=== PATIENT | female | born 1960 ===

== ENCOUNTER 2017-01-09 16:08 | Inpatient (IN) | payer OTHER ==
[2017-01-09 16:49] VITALS: BMI 38.0
--- NOTE | 2017-01-09 18:14 | ED PDOC ---
Arrival/HPI - General Chief Complaint: Psychiatric Evaluation Time Seen by Provider: 01/09/17 18:11 Historian: Patient, Family - History of Present Illness Narrative History of Present Illness (Text): 01/09/17 18:11 A 56 year old female was brought into the emergency department by family for psych evaluation. Family reports patient has not slept in the past 3 days and is not acting like herself. She reports patient has had 2 "mental breakdowns" in the past, which feel similar to today. Patient has not been compliant with her medication. Patient is laughing uncontrollably but denies any physical pain or discomfort, suicidal ideation, homicidal ideation, or any other complaints. Time/Duration: Other (3 days) Symptom Course: Unchanged Quality: Other Context: Home Past Medical History - Provider Review Nursing Documentation Reviewed: Yes - Infectious Disease Hx of Infectious Diseases: None - Psychiatric Hx Psychophysiologic Disorder: Yes Hx Bipolar Disorder: Yes Hx Substance Use: No - Anesthesia Hx Anesthesia: No Family/Social History - Physician Review Nursing Documentation Reviewed: Yes Family/Social History: No Known Family HX Smoking Status: Current Some Days Smoker Hx Alcohol Use: No Hx Substance Use: No Allergies/Home Meds Allergies/Adverse Reactions: Allergies No Known Allergies Allergy (Verified 01/09/17 16:48) Home Medications: Home Meds Medication Instructions Recorded Confirmed Divalproex [Depakote DR] 0 mg PO DAILY 01/09/17 01/09/17 Risperidone [Risperdal] 0 mg PO DAILY 01/09/17 01/09/17 Physical Exam - Physical Exam Narrative Physical Exam (Text): - Review of Systems Constitutional: Normal. absent: Fatigue, Weight Change, Fevers Eyes: Normal ENT: denies sore throat, denies tristhmus Respiratory: Normal. absent: SOB, Cough, Sputum Cardiovascular: absent: Chest Pain, Palpitations, Syncope Gastrointestinal: Normal. absent: Abdominal Pain, Diarrhea, Nausea, Vomiting Genitourinary: Normal. absent: Dysuria, Frequency, Hematuria, vaginal bleeding Musculoskeletal: Normal. absent: Arthralgias, Back Pain, Neck Pain Skin: no rashes, no erythema Neurological: absent: Focal Weakness Endocrine: Normal Hemo/Lymphatic: Normal Psychiatric: No suicidal or homicidal ideations Physical exam Patient appears age appropriate in no distress, speaking full sentences without difficulty - Systems Exam Head: Present: Atraumatic, Normocephalic Pupils: Present: PERRL Extroacular Muscles: Present: EOMI Conjunctiva: Present: Normal Mouth: Present: Moist Mucous Membranes Neck: Present: Normal Range of Motion. No: MIDLINE TENDERNESS, Paraspinal Tenderness Respiratory/Chest: Present: Clear to Auscultation, Good Air Exchange. No: Respiratory Distress, Accessory Muscle Use, Tachypneic Cardiovascular: Present: Regular Rate and Rhythm, Normal S1, S2, Peripheal Pulses Present. No: Murmurs Abdomen: Present: Normal Bowel Sounds. No: Tenderness, Distention, Peritoneal Signs, Rebound, Guarding Back: Present: Normal Inspection. No: Midline Tenderness, Paraspinal Tenderness Upper Extremity: Present: Normal Inspection. No: Cyanosis, Edema Lower Extremity: Present: Normal Inspection. No: Edema Neurological: Present: GCS=15, Speech Normal, cranial nerves II through XII fully intact with no cerebellar abnormality, neurosensory fully intact. No focal neurological deficits. Skin: Present: Warm, Dry, Normal Color. No: Rashes Lymphatic: Present: OX3, NI, NC Psychiatric: Present: Alert, not anxious Vital Signs Reviewed: Yes Vital Signs Temp Pulse Resp BP Pulse Ox 01/09/17 20:49 88 18 138/58 L 97 01/09/17 16:51 99.0 F 98 H 19 165/80 H 100 Temperature: Afebrile Blood Pressure: Hypertensive Pulse: Tachycardic Respiratory Rate: Normal Medical Decision Making ED Course and Treatment: 01/09/17 18:11 Impression: A 56 year old female brought in for psych evaluation. Patient has not taken her medication in 3 days. Plan: -- Chest xray -- EKG -- Labs -- Urinalysis -- Reassess and disposition Progress Notes: Patient offered something for her nerves and she accepted oral medication. 01/09/17 21:05 seen by PES, accepted to Dr. Lundy's service for acute psychosis pt and family aware of and agree with plan 01/09/17 22:06 sodium and chloride low fluid bolus ordered pt will be admitted medically first until stabilized spoke with med resident signed out to Dr. Villasenor, accepted med/surg admission family aware of and agree with plan - Lab Interpretations Lab Results: 01/09/17 20:56 01/09/17 20:56 Lab Results 01/09/17 21:13: Urine Opiates Screen Negative, Urine Methadone Screen Negative, Ur Barbiturates Screen Negative, Ur Phencyclidine Scrn Negative, Ur Amphetamines Screen Negative, U Benzodiazepines Scrn Negative, U Oth Cocaine Metabols Positive H, U Cannabinoids Screen Negative 01/09/17 21:13: Urine Color Yellow, Urine Appearance Sl cloudy, Urine pH 6.0, Ur Specific [place] <= 1.005, Urine Protein Negative, Urine Glucose (UA) Negative, Urine Ketones Negative, Urine Blood Large H, Urine Nitrate Negative, Urine Bilirubin Negative, Urine Urobilinogen 1.0 H, Ur Leukocyte Esterase Moderate H, Urine RBC 5 - 10, Urine WBC 10 - 15, Ur Epithelial Cells 10 - 12, Urine Bacteria Few 01/09/17 20:56: Alcohol, Quantitative < 10 01/09/17 20:56: Salicylates < 1 L, Acetaminophen < 10.0 L 01/09/17 20:56: Sodium 125 L, Potassium 4.2, Chloride 90 L, Carbon Dioxide 26, Anion Gap 13, BUN 4 L, Creatinine 0.9, Est GFR ( Amer) > 60, Est GFR (Non -Af Amer) > 60, Random Glucose 95, Calcium 9.7, Total Bilirubin 0.8, AST 41 H, ALT 21, Alkaline Phosphatase 140 H, Total Protein 8.4 H, Albumin 4.1, Globulin 4.3, Albumin/Globulin Ratio 1.0 L 01/09/17 20:56: WBC 10.8, RBC 4.27, Hgb 14.1, Hct 39.0, MCV 91.3, MCH 33.0, MCHC 36.2, RDW 12.6, Plt Count 249, MPV 11.1 H, Gran % 55.7, Lymph % (Auto) 33.2 , [place] % (Auto) 8.9 H, Eos % (Auto) 1.8, Baso % (Auto) 0.4, Gran # 6.04, Lymph # 3.6 H, [place] # 1.0 H, Eos # 0.2, Baso # 0.04 I have reviewed the lab results: Yes - RAD Interpretation Radiology Orders: 01/09/17 18:13 CHEST PORTABLE [RAD] Stat - Medication Orders Current Medication Orders: Sodium Chloride (Sodium Chloride 0.9%) 1,000 mls @ 1,000 mls/hr IV .Q1H STA Stop: 01/09/17 22:55 Discontinued Medications Haloperidol Lactate (Haldol) 5 mg IM STAT STA Stop: 01/09/17 21:13 Last Admin: 01/09/17 21:45 Dose: 5 mg Lorazepam (Ativan) 2 mg IM ONCE ONE Stop: 01/09/17 21:13 Last Admin: 01/09/17 21:45 Dose: 2 mg Ziprasidone (Geodon Cap) 20 mg PO STAT STA PRN Reason: Protocol Stop: 01/09/17 18:44 Last Admin: 01/09/17 19:25 Dose: 20 mg - Scribe Statement The provider has reviewed the documentation as recorded by the Lena Manzano Provider Scribe Attestation: All medical record entries made by the Scribe were at my direction and personally dictated by me. I have reviewed the chart and agree that the record accurately reflects my personal performance of the history, physical exam, medical decision making, and the department course for this patient. I have also personally directed, reviewed, and agree with the discharge instructions and disposition. Disposition/Present on Arrival - Present on Arrival Any Indicators Present on Arrival: No History of DVT/PE: No History of Uncontrolled Diabetes: No Urinary Catheter: No History of Decub. Ulcer: No History Surgical Site Infection Following: None - Disposition Have Diagnosis and Disposition been Completed?: Yes Diagnosis: Hyponatremia Disposition: HOSPITALIZED Disposition Time: 22:06 Patient Plan: Admission Condition: FAIR Referrals: Debbie Nagel MD [Primary Care Provider] - Follow up with primary Forms: [employer] (Kyrgyz)
[2017-01-09 21:04] LABS: BASO # 0.04 K/mm3 (0.0-2.0); BASO % 0.4 % (0.0-3.0); EOS # 0.2 (0.0-0.7); EOS % 1.8 % (1.5-5.0); GRAN # 6.04 (1.4-6.5); GRAN % 55.7 % (50.0-68.0); LYMPH # 3.6 (1.2-3.4); LYMPH % 33.2 % (22.0-35.0); MEAN CELL VOLUME 91.3 fl (80.0-105.0); MEAN CORPUSCULAR HGB CONC 36.2 g/dl (31.0-37.0); MEAN PLATELET VOLUME 11.1 fl (7.0-11.0); MONO % 8.9 % (1.0-6.0); RED CELL DISTRIBUTION WIDTH 12.6 % (11.5-14.5); WHITE BLOOD COUNT 10.8 10^3/ul (4.5-11.0)
[2017-01-09 21:14] LABS: ALKALINE PHOSPHATASE 140 U/L (38-126); ALT/SGPT 21 U/L (7-56); AST/SGOT 41 U/L (14-36); BILIRUBIN,TOTAL 0.8 mg/dL (0.2-1.3); BLOOD UREA NITROGEN 4 mg/dL (7-21); CALCIUM 9.7 mg/dL (8.4-10.5); CARBON DIOXIDE 26 mmol/L (21-33); CHLORIDE 90 mmol/L (95-110); GFR AFRICAN-AMERICAN > 60; GLUCOSE,RANDOM 95 mg/dL (70-110); POTASSIUM 4.2 mmol/L (3.6-5.0); SODIUM 125 mmol/L (132-148); TOTAL PROTEIN 8.4 g/dL (5.8-8.3)
[2017-01-09 21:23] LABS: URINE BILIRUBIN NEGATIVE (NEGATIVE); URINE BLOOD LARGE (NEGATIVE); URINE GLUCOSE (UA) NEGATIVE (NEGATIVE); URINE KETONE NEGATIVE (NEGATIVE); URINE LEUKOCYTE ESTERASE MODERATE Leu/uL (NEGATIVE); URINE PROTEIN NEGATIVE mg/dL (<30 mg/dL)
[2017-01-09 21:24] LABS: URINE APPEARANCE SL CLOUDY (CLEAR); URINE COLOR YELLOW (YELLOW)
[2017-01-09 21:30] LABS: URINE BACTERIA FEW (NEG)
[2017-01-09] MEDS ORDERED: Sodium Chloride 0.9% 1,000 ML IV STA (21:56)
[2017-01-10] MEDS ORDERED: Sodium Chloride 0.9% 1,000 ML IV SCH (01:36)
--- NOTE | 2017-01-10 01:53 | CP.PCM.HP ---
<AMBER JUNG - Last Filed: 01/10/17 01:49> History of Present Illness - History of Present Illness History of Present Illness: Amber Jung, PGY1, H&P for Dr. Villasenor: CC: Insomnia 56F with PMH Bipolar d/o, Schizophrenia, HTN, brought in by family for insomniax past 3 days [employer]. When examined by me, pt already received Geodon, Ativan, Haldol in ED - pt sedated and drowsy. Info obtained from previous records/family not at bedside. As per family, pt has not slept for past 3 days , not acting herself, and is noncompliant with her meds, laughing uncontrollably. Denied any physical pain, discomfort, suicidal and homicidal ideations. In ED, VS wnl with elevated BP 165/80, Na 125, Cl 90, UA + blood and infection. Currently, pt drowsy and sleepy, denies any pain, nausea, vomiting, malaise, weakness. Rest ROS unobtainable due to drowsy state. PMH: Bipolar disorder (with 2 mental breakdowns in the past), HTN, Schizophrenia PSH: denies ALL: NKA SH: unemployed. rest unobtainable. Present on Admission - Present on Admission Any Indicators Present on Admission: No History of DVT/PE: No History of Uncontrolled Diabetes: No Urinary Catheter: No Decubitus Ulcer Present: No History Surgical Site Infection Following: None Review of Systems - Review of Systems Systems not reviewed;Unavailable: Acuity of Condition, Other (pt sedated on Geodon, ativan and haldol) Past Patient History - Infectious Disease Hx of Infectious Diseases: None - Past Social History Smoking Status: Current Some Days Smoker - CARDIAC Hx Cardiac Disorders: No Hx Hypertension: No - PULMONARY Hx Tuberculosis: No - NEUROLOGICAL HX Cerebrovascular Accident: No Hx Seizures: No - HEMATOLOGICAL/ONCOLOGICAL Hx Cancer: No Hx Human Immunodeficiency Virus (HIV): No - GENITOURINARY/GYNECOLOGICAL Hx Sexually Transmitted Disorders: No - PSYCHIATRIC Hx Psychophysiologic Disorder: Yes Hx Bipolar Disorder: Yes Hx Substance Use: No - SURGICAL HISTORY Hx Surgeries: No - ANESTHESIA Hx Anesthesia: No Meds Allergies/Adverse Reactions: Allergies Allergy/AdvReac Type Severity Reaction Status Date / Time No Known Allergies Allergy Verified 01/09/17 16:48 Physical Exam - Constitutional Appears: No Acute Distress, Unkempt, Older Than Stated Age Additional comments: drowsy - Head Exam Head Exam: ATRAUMATIC, NORMOCEPHALIC - Eye Exam Eye Exam: PERRL. absent: Conjunctival injection, Scleral icterus Pupil Exam: NORMAL ACCOMODATION, PERRL. absent: Irregular, Unequal - ENT Exam ENT Exam: Mucous Membranes Dry - Neck Exam Neck exam: Negative for: Lymphadenopathy, Thyromegaly - Respiratory Exam Respiratory Exam: Clear to Auscultation Bilateral, NORMAL BREATHING PATTERN. absent: Rales, Rhonchi, Wheezes - Cardiovascular Exam Cardiovascular Exam: RRR, +S1, +S2. absent: Systolic Murmur - GI/Abdominal Exam GI & Abdominal Exam: Distended, Normal Bowel Sounds, Soft. absent: Tenderness - Extremities Exam Extremities exam: Positive for: normal inspection, pedal pulses present. Negative for: calf tenderness, pedal edema - Neurological Exam Neurological exam: Alert, Oriented x3 - Psychiatric Exam Psychiatric exam: Flat Affect Additional comments: drowsy and sleepy - Skin Skin Exam: Dry, Warm Results - Vital Signs Recent Vital Signs: Last Vital Signs Temp 99.0 F 01/09/17 16:51 Pulse 88 01/09/17 20:49 Resp 18 01/09/17 20:49 BP 138/58 L 01/09/17 20:49 Pulse Ox 97 01/09/17 20:49 - Labs Result Diagrams: 01/09/17 20:56 01/09/17 20:56 Assessment & Plan - Assessment and Plan (Free Text) Assessment: 56F with PMH bipolar disorder, HTN, admitted for an episode of acute psychosis, found to be hyponatremic, hypochloremic, and possible UTI? Plan: Hyponatremia/Hypochloremia: - 2/2 polydipsia vs low intake vs hyperlipidemia - Na 125, glucose 95 - f/u Soms, Uosm, Belia, UCl, lipid panel, CMP in AM - received 1L NS in ED - Will start NS at 100/hr UTI: - unable to obtain appropriate hx since pt is sedated - UA shows yellow, slightly cloudy urine, large blood, neg nitrate, moderate leuk esterase, few bacteria, 10-12 epithelial cells, 10-15 wbcs, 5-10 rbcs - Will start Macrobid x 3 days Acute Psychosis, Hx of Bipolar disorder: - F/u Dr. Foster's recs. Unclear the dosage and the home psych meds. On home Risperidone and Depakote (unclear dosage). - Please obtain med rec from patient's pharmacy tomorrow AM. Hx of Schizophrenia: - Please contact pt's family and PMD in AM to obtain a proper psych history. - Pt noncompliant with meds as per family Hx of HTN: - unknown meds at home - Hydralazine prn DVT ppx: SCDs Diet: heart healthy diet Discussed with Dr Jacklyn Jung, PGY1 - Date & Time Date: 01/10/17 Time: 02:24 <Rhoda Villasenor - Last Filed: 01/10/17 09:13> Results - Vital Signs Recent Vital Signs: Last Vital Signs Temp 9813 F H 01/10/17 04:03 Pulse 20 L 01/10/17 04:03 Resp 20 01/10/17 04:03 BP 138/76 01/10/17 04:03 Pulse Ox 97 01/09/17 20:49 - Labs Result Diagrams: 01/09/17 20:56 01/09/17 20:56 Labs: Laboratory Results - last 24 hr 01/10/17 01/10/17 01/10/17 04:05 04:30 04:30 Serum Osmolality 258 L Urine Osmolality 130 Ur Random Sodium 21 Attending/Attestation - Attestation I have personally seen and examined this patient.: Yes I have fully participated in the care of the patient.: Yes I have reviewed all pertinent clinical information: Yes Notes (Text): 01/10/17 08:53 Patient was seen when she was in "ISO" room in the ER. Agree with history , physical examination assessment and plan.
--- NOTE | 2017-01-10 09:27 | RAD ---
HISTORY: med clearence COMPARISON: No prior. FINDINGS: LUNGS: No active pulmonary disease. PLEURA: No significant pleural effusion identified, no pneumothorax apparent. CARDIOVASCULAR: Normal. OSSEOUS STRUCTURES: No significant abnormalities. VISUALIZED UPPER ABDOMEN: Normal. OTHER FINDINGS: None. IMPRESSION: No active disease.
[2017-01-10 09:34] VITALS: RESP 18
[2017-01-10 16:44] LABS: BLOOD UREA NITROGEN 11 mg/dL (7-21); CALCIUM 9.4 mg/dL (8.4-10.5); CARBON DIOXIDE 27 mmol/L (21-33); CHLORIDE 97 mmol/L (98-107); GFR AFRICAN-AMERICAN > 60; GLUCOSE,RANDOM 79 mg/dL (70-110); POTASSIUM 4.4 mmol/L (3.6-5.0); SODIUM 131 mmol/L (132-148)
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
--- NOTE | 2017-01-10 17:45 | CP.PCM.DIS ---
<BrianVeroniquen - Last Filed: 01/10/17 17:46> Provider - Provider Date of Admission: 01/09/17 22:13 Attending physician: Janene Alarcon MD Primary care physician: Debbie Nagel MD Time Spent in preparation of Discharge (in minutes): 60 Hospital Course - Lab Results Lab Results: Most Recent Lab Values WBC 10.8 10^3/ul (4.5-11.0) 01/09/17 20:56 RBC 4.27 10^6/uL (3.5-6.1) 01/09/17 20:56 Hgb 14.1 g/dL (12.0-16.0) 01/09/17 20:56 Hct 39.0 % (36.0-48.0) 01/09/17 20:56 MCV 91.3 fl (80.0-105.0) 01/09/17 20:56 MCH 33.0 pg (25.0-35.0) 01/09/17 20:56 MCHC 36.2 g/dl (31.0-37.0) 01/09/17 20:56 RDW 12.6 % (11.5-14.5) 01/09/17 20:56 Plt Count 249 10^3/uL (120.0-450.0) 01/09/17 20:56 MPV 11.1 fl (7.0-11.0) H 01/09/17 20:56 Gran % 55.7 % (50.0-68.0) 01/09/17 20:56 Lymph % (Auto) 33.2 % (22.0-35.0) 01/09/17 20:56 [place] % (Auto) 8.9 % (1.0-6.0) H 01/09/17 20:56 Eos % (Auto) 1.8 % (1.5-5.0) 01/09/17 20:56 Baso % (Auto) 0.4 % (0.0-3.0) 01/09/17 20:56 Gran # 6.04 (1.4-6.5) 01/09/17 20:56 Lymph # 3.6 (1.2-3.4) H 01/09/17 20:56 [place] # 1.0 (0.1-0.6) H 01/09/17 20:56 Eos # 0.2 (0.0-0.7) 01/09/17 20:56 Baso # 0.04 K/mm3 (0.0-2.0) 01/09/17 20:56 Sodium 131 mmol/L (132-148) L 01/10/17 16:32 Potassium 4.4 mmol/L (3.6-5.0) 01/10/17 16:32 Chloride 97 mmol/L (98-107) L 01/10/17 16:32 Carbon Dioxide 27 mmol/L (21-33) 01/10/17 16:32 Anion Gap 11 (10-20) 01/10/17 16:32 BUN 11 mg/dL (7-21) 01/10/17 16:32 Creatinine 0.8 mg/dL (0.5-1.4) 01/10/17 16:32 Est GFR ( Amer) > 60 01/10/17 16:32 Est GFR (Non-Af Amer) > 60 01/10/17 16:32 Random Glucose 79 mg/dL (70-110) 01/10/17 16:32 Serum Osmolality 258 mosm/kg (271-296) L 01/10/17 04:05 Calcium 9.4 mg/dL (8.4-10.5) 01/10/17 16:32 Total Bilirubin 0.8 mg/dL (0.2-1.3) 01/09/17 20:56 AST 41 U/L (14-36) H 01/09/17 20:56 ALT 21 U/L (7-56) 01/09/17 20:56 Alkaline Phosphatase 140 U/L (38-126) H 01/09/17 20:56 Total Protein 8.4 g/dL (5.8-8.3) H 01/09/17 20:56 Albumin 4.1 g/dL (3.0-4.8) 01/09/17 20:56 Globulin 4.3 gm/dL 01/09/17 20:56 Albumin/Globulin Ratio 1.0 (1.1-1.8) L 01/09/17 20:56 Urine Color Yellow (YELLOW) 01/09/17 21:13 Urine Appearance Sl cloudy (CLEAR) 01/09/17 21:13 Urine pH 6.0 (4.7-8.0) 01/09/17 21:13 Ur Specific [place] <= 1.005 (1.005-1.035) 01/09/17 21:13 Urine Protein Negative mg/dL (<30 mg/dL) 01/09/17 21:13 Urine Glucose (UA) Negative mg/dL (NEGATIVE) 01/09/17 21:13 Urine Ketones Negative mg/dL (NEGATIVE) 01/09/17 21:13 Urine Blood Large (NEGATIVE) H 01/09/17 21:13 Urine Nitrate Negative (NEGATIVE) 01/09/17 21:13 Urine Bilirubin Negative (NEGATIVE) 01/09/17 21:13 Urine Urobilinogen 1.0 E.U./dL (<1 E.U./dL) H 01/09/17 21:13 Ur Leukocyte Esterase Moderate Radha/uL (NEGATIVE) H 01/09/17 21:13 Urine RBC 5 - 10 /hpf (0-2) 01/09/17 21:13 Urine WBC 10 - 15 /hpf (0-6) 01/09/17 21:13 Ur Epithelial Cells 10 - 12 /hpf (0-5) 01/09/17 21:13 Urine Bacteria Few (NEG) 01/09/17 21:13 Urine Osmolality 130 mosm/kg (50-645) 01/10/17 04:30 Ur Random Sodium 21 meq/L 01/10/17 04:30 Salicylates < 1 mg/dL (2.0-20.0) L 01/09/17 20:56 Urine Opiates Screen Negative (NEGATIVE) 01/09/17 21:13 Urine Methadone Screen Negative (NEGATIVE) 01/09/17 21:13 Acetaminophen < 10.0 ug/ml (10.0-20.0) L 01/09/17 20:56 Ur Barbiturates Screen Negative (NEGATIVE) 01/09/17 21:13 Ur Phencyclidine Scrn Negative (NEGATIVE) 01/09/17 21:13 Ur Amphetamines Screen Negative (NEGATIVE) 01/09/17 21:13 U Benzodiazepines Scrn Negative (NEGATIVE) 01/09/17 21:13 U Oth Cocaine Metabols Positive (NEGATIVE) H 01/09/17 21:13 U Cannabinoids Screen Negative (NEGATIVE) 01/09/17 21:13 Alcohol, Quantitative < 10 mg/dL (0-10) 01/09/17 20:56 - Hospital Course Hospital Course: 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 When examined by me, pt already received Geodon, Ativan, Haldol in [facility] ED - pt sedated and drowsy. Per family, pt has not slept in the past 3 days, is not acting herself, and is noncompliant with her meds, laughing uncontrollably. Denied physical pain/ discomfort/SI/HI. ROS unobtainable due to drowsy state. Jq=[id number] 01/10: Pt does not want to stay. Seen by psych, not allowed to AMA. Unable to obtain blood due to pt compliance. On 01/10 patient was seen by psych again and they agreed to transfer her to the unit pending medical clearance. Patient was cleared for transfer once final labs came back. Patient was transferred to psych inpatient unity. PMH: Bipolar disorder (with 2 mental breakdowns in the past), HTN, Schizophrenia PSH: denies ALL: NKA SH: unemployed. rest unobtainable. Discharge Exam - Head Exam Head Exam: ATRAUMATIC, NORMOCEPHALIC - Eye Exam Eye Exam: EOMI, Normal appearance, PERRL Pupil Exam: NORMAL ACCOMODATION, PERRL - Respiratory Exam Respiratory Exam: Clear to PA & Lateral, NORMAL BREATHING PATTERN. absent: Rales, Rhonchi - Cardiovascular Exam Cardiovascular Exam: REGULAR RHYTHM, +S1, +S2. absent: Rubs - GI/Abdominal Exam GI & Abdominal Exam: Normal Bowel Sounds, Unremarkable. absent: Firm, Guarding - Back Exam Back exam: NORMAL INSPECTION. absent: CVA tenderness (L), CVA tenderness (R), paraspinal tenderness - Neurological Exam Neurological exam: Alert, CN II-XII Intact, Oriented x3 - Psychiatric Exam Psychiatric exam: Agitated, Anxious - Skin Skin Exam: Dry, Normal Color Discharge Plan - Follow Up Plan Condition: FAIR Disposition: DISCHARGE TO PSYCH HOSPITAL Instructions: Hyponatremia (DC), Hyponatremia (GEN) Additional Instructions: Patient is to follow up with PMD within one week. Patient is to follow up with Psychiatrist within one week. Patient should return to E.D. for any new or worsening symptoms. Referrals: Debbie Nagel MD [Primary Care Provider] - <Janene Alarcon - Last Filed: 01/10/17 18:36> Provider - Provider Date of Admission: 01/09/17 22:13 Attending physician: Janene Alarcon MD Primary care physician: Debbie Nagel MD Hospital Course - Lab Results Lab Results: Most Recent Lab Values WBC 10.8 10^3/ul (4.5-11.0) 01/09/17 20:56 RBC 4.27 10^6/uL (3.5-6.1) 01/09/17 20:56 Hgb 14.1 g/dL (12.0-16.0) 01/09/17 20:56 Hct 39.0 % (36.0-48.0) 01/09/17 20:56 MCV 91.3 fl (80.0-105.0) 01/09/17 20:56 MCH 33.0 pg (25.0-35.0) 01/09/17 20:56 MCHC 36.2 g/dl (31.0-37.0) 01/09/17 20:56 RDW 12.6 % (11.5-14.5) 01/09/17 20:56 Plt Count 249 10^3/uL (120.0-450.0) 01/09/17 20:56 MPV 11.1 fl (7.0-11.0) H 01/09/17 20:56 Gran % 55.7 % (50.0-68.0) 01/09/17 20:56 Lymph % (Auto) 33.2 % (22.0-35.0) 01/09/17 20:56 [place] % (Auto) 8.9 % (1.0-6.0) H 01/09/17 20:56 Eos % (Auto) 1.8 % (1.5-5.0) 01/09/17 20:56 Baso % (Auto) 0.4 % (0.0-3.0) 01/09/17 20:56 Gran # 6.04 (1.4-6.5) 01/09/17 20:56 Lymph # 3.6 (1.2-3.4) H 01/09/17 20:56 [place] # 1.0 (0.1-0.6) H 01/09/17 20:56 Eos # 0.2 (0.0-0.7) 01/09/17 20:56 Baso # 0.04 K/mm3 (0.0-2.0) 01/09/17 20:56 Sodium 131 mmol/L (132-148) L 01/10/17 16:32 Potassium 4.4 mmol/L (3.6-5.0) 01/10/17 16:32 Chloride 97 mmol/L (98-107) L 01/10/17 16:32 Carbon Dioxide 27 mmol/L (21-33) 01/10/17 16:32 Anion Gap 11 (10-20) 01/10/17 16:32 BUN 11 mg/dL (7-21) 01/10/17 16:32 Creatinine 0.8 mg/dL (0.5-1.4) 01/10/17 16:32 Est GFR ( Amer) > 60 01/10/17 16:32 Est GFR (Non-Af Amer) > 60 01/10/17 16:32 Random Glucose 79 mg/dL (70-110) 01/10/17 16:32 Serum Osmolality 258 mosm/kg (271-296) L 01/10/17 04:05 Calcium 9.4 mg/dL (8.4-10.5) 01/10/17 16:32 Total Bilirubin 0.8 mg/dL (0.2-1.3) 01/09/17 20:56 AST 41 U/L (14-36) H 01/09/17 20:56 ALT 21 U/L (7-56) 01/09/17 20:56 Alkaline Phosphatase 140 U/L (38-126) H 01/09/17 20:56 Total Protein 8.4 g/dL (5.8-8.3) H 01/09/17 20:56 Albumin 4.1 g/dL (3.0-4.8) 01/09/17 20:56 Globulin 4.3 gm/dL 01/09/17 20:56 Albumin/Globulin Ratio 1.0 (1.1-1.8) L 01/09/17 20:56 Urine Color Yellow (YELLOW) 01/09/17 21:13 Urine Appearance Sl cloudy (CLEAR) 01/09/17 21:13 Urine pH 6.0 (4.7-8.0) 01/09/17 21:13 Ur Specific [place] <= 1.005 (1.005-1.035) 01/09/17 21:13 Urine Protein Negative mg/dL (<30 mg/dL) 01/09/17 21:13 Urine Glucose (UA) Negative mg/dL (NEGATIVE) 01/09/17 21:13 Urine Ketones Negative mg/dL (NEGATIVE) 01/09/17 21:13 Urine Blood Large (NEGATIVE) H 01/09/17 21:13 Urine Nitrate Negative (NEGATIVE) 01/09/17 21:13 Urine Bilirubin Negative (NEGATIVE) 01/09/17 21:13 Urine Urobilinogen 1.0 E.U./dL (<1 E.U./dL) H 01/09/17 21:13 Ur Leukocyte Esterase Moderate Radha/uL (NEGATIVE) H 01/09/17 21:13 Urine RBC 5 - 10 /hpf (0-2) 01/09/17 21:13 Urine WBC 10 - 15 /hpf (0-6) 01/09/17 21:13 Ur Epithelial Cells 10 - 12 /hpf (0-5) 01/09/17 21:13 Urine Bacteria Few (NEG) 01/09/17 21:13 Urine Osmolality 130 mosm/kg (50-645) 01/10/17 04:30 Ur Random Sodium 21 meq/L 01/10/17 04:30 Salicylates < 1 mg/dL (2.0-20.0) L 01/09/17 20:56 Urine Opiates Screen Negative (NEGATIVE) 01/09/17 21:13 Urine Methadone Screen Negative (NEGATIVE) 01/09/17 21:13 Acetaminophen < 10.0 ug/ml (10.0-20.0) L 01/09/17 20:56 Ur Barbiturates Screen Negative (NEGATIVE) 01/09/17 21:13 Ur Phencyclidine Scrn Negative (NEGATIVE) 01/09/17 21:13 Ur Amphetamines Screen Negative (NEGATIVE) 01/09/17 21:13 U Benzodiazepines Scrn Negative (NEGATIVE) 01/09/17 21:13 U Oth Cocaine Metabols Positive (NEGATIVE) H 01/09/17 21:13 U Cannabinoids Screen Negative (NEGATIVE) 01/09/17 21:13 Alcohol, Quantitative < 10 mg/dL (0-10) 01/09/17 20:56 Attending/Attestation - Attestation I have personally seen and examined this patient.: Yes I have fully participated in the care of the patient.: Yes I have reviewed all pertinent clinical information, including history, physical exam and plan: Yes Notes (Text): 01/10/17 18:34 attending note; Patient seen and examined with resident. Patient is a 56-year-old female with psychiatric problem is admitted to medical floor for hyponatremia. Treated with IV normal saline. Restrict free water intake. sodium improved to 131. Patient refused IV line and IV fluids. positive UA; follow up urine culture results. Patient is clinically stable. Transferred to psychiatric floor. Repeat labs in a.m.. Case discussed with psychiatrist in detail. Diagnosis; schizophrenia Hyponatremia 01/10/17 18:35 01/10/17 18:36
--- NOTE | 2017-01-10 17:51 | CARD ---
APPROVED REPORT EKG Measurement Heart [id number] <Conclusion> Normal sinus rhythm Possible Left atrial enlargement Borderline ECG
[2017-01-10 17:55] VITALS: BP 153/86; PULSE 66; TEMP 97; O2SAT 95
--- NOTE | 2017-01-10 22:51 | CON ---
HISTORY OF PRESENT ILLNESS: The patient is a 56-year-old female with history of mental illness. The patient did not have admission to the psychiatric inpatient unit for past 20 years. The patient was brought by her sister for evaluation of bizarre and agitated behavior, which the patient was experiencing for past 4 days. The patient's sister said that the patient was not sleeping. Initially, the patient was offered admission to the psychiatric inpatient unit, but the patient was found to have low sodium level as well as urinary tract infection and was admitted on the medical side. In the emergency room, the patient was severely agitated, needed to be medicated, and this specifications writer suggested [facility] evaluation ortega. Eventually, the patient signed consent as well as had medical issues and ended up in the medical side. This specifications writer spoke to the patient today. The patient presented to be irritable and disorganized, difficult to stay focused and concentrate. The patient has very poor insight for her illness. The patient sensed to have unpredictable impulses. The patient said "if I will stay in the hospital any longer, I will break the TV" and the patient started to bang on the TV with her arm. The patient was redirected, no needed to be medicated, was able to calm down without medications. The patient is poor and unreliable historian. The patient does not remember the doses of her Risperdal, which she is supposed to take as well as the patient does not have psychiatrist in the community and the patient said her primary care physician, Dr. Nagel, is giving her medication. As per report from the emergency room, the patient presented in the emergency room to be agitated, restless, paranoid, thought process was circumstantial and tangential with pressured stage. As per patient's family, the patient had aggressive episodes at home. PHYSICAL EXAMINATION: VITAL SIGNS: This specifications writer reviewed vital signs. Vital signs seem to be stable. Temperature 97.8, pulse of 72, blood pressure 139/77, respirations 18 and oxygen saturation is 94%. MEDICATIONS: Reviewed. The patient was started on hydralazine, Macrobid for urinary tract infection. This specifications writer will start Risperdal 0.5 mg twice a day, sodium chloride. Sonata was started at the nighttime for insomnia and Geodon 20 mg IM 3 times a day as needed for severe agitation. LABORATORY DATA: Reviewed. Sodium level is 125. Urinalysis showed leukocyte esterase moderate and blood large. Toxicology: Cocaine positive. MENTAL STATUS EXAMINATION: The patient presented to be irritable and angry, difficult to stay focused. Intermittent eye contact. Speech was loud, overproductive. Mood described "I am fine, I want to go home." Affect was irritable and mood incongruent. Thought process: Circumstantial and tangential. Thought content: The patient denied visual, auditory or tactile hallucinations. Denied paranoid ideation, but the patient obviously has psychotic, disorganized and paranoid. Insight and judgment are limited. Impulses are unpredictable. IMPRESSION: As per history, the patient has mental illness. This specifications writer suggests maybe the patient has bipolar disorder versus schizoaffective disorder. This specifications writer also cannot exclude that the patient is in delirium stage because cocaine was positive as well as the patient has leukocyte esterase positive, possible urinary tract infection as well as electrolyte disbalance. PLAN: The patient signed consent for treatment yesterday, and it will be within 24 hours. The patient was started on Risperdal 0.5 mg 3 times a day, Ativan as well as Sonata, the p.r.n. medications were started. The patient is not psychiatrically cleared. The patient most likely needs further evaluation and stabilization through the psychiatric inpatient unit. We will wait for laboratory. Either we will transfer the patient today or tomorrow. Thank you very much for letting me participate in care of your patient. Kristin Lundy MD
[2017-01-11 08:51] LABS: CHLORIDE URINE 24 mmol/L (32-290)
== END 2017-01-10 19:14 | DRG 641 ==
LOC: ED 16:08 → ERH 22:13 → 5RSO 01-10 01:52
PROVIDERS: ADMIT Internal Medicine; ATTEND Internal Medicine
DX: E87.1 Hypo-osmolality and hyponatremia (principal); F25.9 Schizoaffective disorder, unspecified; I10 Essential (primary) hypertension; N39.0 Urinary tract infection, site not specified; F23 Brief psychotic disorder; F20.9 Schizophrenia, unspecified; F31.9 Bipolar disorder, unspecified; G47.00 Insomnia, unspecified; Z79.899 Other long term (current) drug therapy; Z87.891 Personal history of nicotine dependence; Z91.14 Patient's other noncompliance with medication regimen; R40.2412 Glasgow coma scale score 13-15, at arrival to emergency department; Z56.0 Unemployment, unspecified; E87.8 Other disorders of electrolyte and fluid balance, not elsewhere classified

== ENCOUNTER 2017-01-10 19:20 | Inpatient (IN) | payer MEDICAID ==
[2017-01-10 19:51] VITALS: BMI 29.2
[2017-01-10] MEDS ORDERED: Alum-Mag Hydrox-Simethicone Susp (30 mL) PO PRN (20:10)
[2017-01-10] MEDS ORDERED: Magnesium Hydroxide Susp 30 ml UD PO PRN (20:10)
--- NOTE | 2017-01-10 22:00 | PCM.BM ---
<Carl Qureshi - Last Filed: 01/10/17 21:57> Treatment Plan Problems - Problems identified on initial assessmt Altered Thought Process Date Initiated: 01/10/17 Time Initiated: 21:59 Assessment reference: NA Priority: 1 Agitated Behavior Date Initiated: 01/10/17 Time Initiated: 21:59 Assessment reference: NA Priority: 2 Altered Sleep Patterns Date Initiated: 01/10/17 Time Initiated: 21:59 Assessment reference: NA Status: Active Priority: 3 Medication Nonadherence Date Initiated: 01/10/17 Time Initiated: 22:00 Assessment reference: NA Status: Active Priority: 4 Auditory Hallucinations Date Initiated: 01/10/17 Time Initiated: 22:00 Assessment reference: NA Status: Active Priority: 5 Treatment assets and liabiliti Patient Assests: cooperative, negotiates basic needs Patient Liabilities: relationship conflicts <Kristin Lundy - Last Filed: 01/11/17 10:34> - Diagnosis (1) Bipolar disorder Status: Acute Interventions: 01/11/17 10:34 Psychoeducation Psychopharmacology/adjustment of medications as needed/ monitoring possible side effects Monitor blood level of mood stabilizers Evaluate pt on daily basis Compliance with medications and follow up appointments Suicide and homicide risk assessment and prevention, coping strategies, safety plan Relapse prevention Reduction of symptoms Improve functional status Family involvement educate pt about cognitive behavioral therapy 01/11/17 10:34 (2) Hyponatremia Status: Acute Interventions: 01/11/17 10:35 Pt will be seen by medical team as needed Medications will be confirmed and resumed Additional consultation by specialists as needed Lab work as needed (CBC, CMP, TSH, free T4, UA, Urine test for females as needed) CXR as needed EKG Physical therapy valuation as needed <Sahil Vann - Last Filed: 01/12/17 12:31> Treatment assets and liabiliti Patient Assests: resourceful, good interpersonal skills - Milieu Protocol Maintain good personal hygiene: daily Encourage regular showers, daily Remind patient to perform daily oral care, daily Assist patient to perform ADL's Maintain personal safety: daily Educate patient to report safety concerns to staff, daily Monitor environment for contraband/sharps Medication safety: Monitor for expected outcome, potential side effects: daily, Assess barriers to learning: daily, Assess readiness for medication education: daily Discharge/Continuing Care - Education Needs Education Needs: Patient Medication, Patient Diagnosis/Disease Process, Patient Anger Management skills, Patient Placement options, Patient Community resources , Patient Activities of Daily Living, Patient Health Practices/Safety, Patient Personal Hygiene/Grooming, Patient Aftercare Safety Plan <Babrra Prieto - Last Filed: 01/15/17 09:07>
[2017-01-11 03:39] VITALS: O2SAT 95
[2017-01-11 08:17] LABS: CHOLESTEROL 150 mg/dL (130-200); GLUCOSE,FASTING 89 mg/dL (65-110)
[2017-01-11 08:35] LABS: FREE T4 1.38 ng/dL (0.78-2.19)
[2017-01-11 08:48] LABS: THYROID STIMULATING HORMONE 3.86 mIU/mL (0.46-4.68)
--- NOTE | 2017-01-11 13:38 | CP.PCM.CON ---
<Lucas Torres - Last Filed: 01/11/17 15:43> History of Present Illness - History of Present Illness History of Present Illness: 56 yr. old female with PMH Bipolar d/o, Schizophrenia, HTN, was brought in by family for insomnia for that past 3 days. While in the E.D. the patient received Geodon, Ativan, Haldol in ED- patient was sedated and drowsy. Info obtained from previous records/ family not at bedside. As per family, pt has not slept for past 3 days, not acting herself, and is noncompliant with her meds , and laughing uncontrollably. Denies any physical pain, discomfort, suicidal and homicidal ideations. In ED, vital signs wnl with elevated BP 165/80, Na 125 , Cl 90, UA+ blood and infection. Examined patient this morning in the [facility] inpatient unit. The patient says she was feeling better and denies any SI, HI, AH or VH. The patient says she just needed some more sleep and that she felt ok to leave in a couple of days. The patient denies chest pain, shortness of breath, nausea, vomiting, lightheadedness, dizziness, and changes in vision or any other complaints. PMH: Bipolar disorder (with 2 mental breakdowns in the past), HTN, Schizophrenia PSH: denies Allergies: NKDA SH: Unemployed. Lives alone. Review of Systems - Constitutional Constitutional: absent: Chills, Headache - EENT Eyes: absent: Change in Vision, Discharge, Loss of Vision Nose/Mouth/Throat: absent: Nasal Congestion, Nasal Discharge, Sore Throat - Cardiovascular Cardiovascular: absent: Chest Pain, Diaphoresis, Palpitations - Respiratory Respiratory: absent: Hemoptysis, Wheezing, Pain with Coughing - Gastrointestinal Gastrointestinal: As Per HPI - Musculoskeletal Musculoskeletal: As Per HPI - Integumentary Integumentary: As Per HPI - Neurological Neurological: As Per HPI - Psychiatric Psychiatric: As Per HPI - Endocrine Endocrine: As Per HPI - Hematologic/Lymphatic Hematologic: As Per HPI Past Patient History - Infectious Disease Hx of Infectious Diseases: None - Past Social History Smoking Status: Never Smoked - CARDIAC Hx Cardiac Disorders: No Hx Hypertension: No - PULMONARY Hx Tuberculosis: No - NEUROLOGICAL HX Cerebrovascular Accident: No Hx Seizures: No - HEMATOLOGICAL/ONCOLOGICAL Hx Cancer: No Hx Human Immunodeficiency Virus (HIV): No - MUSCULOSKELETAL/RHEUMATOLOGICAL Hx Falls: No - GENITOURINARY/GYNECOLOGICAL Hx Sexually Transmitted Disorders: No - PSYCHIATRIC Hx Bipolar Disorder: Yes Hx Schizophrenia: Yes Hx Substance Use: No - SURGICAL HISTORY Hx Surgeries: No - ANESTHESIA Hx Anesthesia: No Meds Home Medications: Home Medication List Medication Instructions Recorded Confirmed Type Divalproex [Depakote DR(*BID*)] 500 mg PO AMHS #30 tcp 01/16/17 Rx Famotidine [Pepcid] 40 mg PO HS #14 tab 01/16/17 Rx Montelukast [Singulair] 10 mg PO DAILY #14 tab 01/16/17 Rx Multivitamin Therapeutic Tab 1 tab PO DAILY #14 tab 01/16/17 Rx [Thera Tab] Nicotine 21 mg/24 hr [Nicoderm Cq] 1 patch TD DAILY #14 patch 01/16/17 Rx Zolpidem Tartrate [Ambien] 10 mg PO HS #14 tablet 01/16/17 Rx amLODIPine [Norvasc] 5 mg PO DAILY #14 tab 01/16/17 Rx risperiDONE [RisperDAL Tab] 2 mg PO AMHS #30 tab 01/16/17 Rx Allergies/Adverse Reactions: Allergies Allergy/AdvReac Type Severity Reaction Status Date / Time No Known Allergies Allergy Verified 01/10/17 23:58 - Medications Medications: Current Medications Acetaminophen (Tylenol 325mg Tab) 650 mg PO Q4 PRN PRN Reason: Pain, Mild (1-3) Last Admin: 01/11/17 12:35 Dose: 650 mg Al Hydrox/Mg Hydrox/Simethicone (Maalox Plus 30 Ml) 30 ml PO DAILY PRN PRN Reason: Upset Stomach Magnesium Hydroxide (Milk Of Magnesia) 30 ml PO DAILY PRN PRN Reason: Constipation Nitrofurantoin Macrocrystals (Macrobid) 100 mg PO Q12 HECTOR Last Admin: 01/11/17 06:59 Dose: 100 mg Risperidone (Risperdal Tab) 0.5 mg PO 0800,2200 HECTOR PRN Reason: Protocol Last Admin: 01/11/17 08:01 Dose: 0.5 mg Zaleplon (Sonata) 5 mg PO HS PRN PRN Reason: Insomnia Last Admin: 01/11/17 00:36 Dose: 5 mg Ziprasidone (Geodon Cap) 20 mg PO TID PRN; Protocol PRN Reason: Agitation Last Admin: 01/11/17 12:35 Dose: 20 mg Ziprasidone (Geodon Inj) 20 mg IM TID PRN; Protocol PRN Reason: Agitation Last Admin: 01/11/17 05:07 Dose: 20 mg Physical Exam - Head Exam Head Exam: ATRAUMATIC, NORMAL INSPECTION, NORMOCEPHALIC - Eye Exam Eye Exam: EOMI, Normal appearance, PERRL Pupil Exam: NORMAL ACCOMODATION, PERRL - ENT Exam ENT Exam: Mucous Membranes Moist, Normal Exam - Neck Exam Neck exam: Positive for: Normal Inspection - Respiratory Exam Respiratory Exam: Clear to Auscultation Bilateral, NORMAL BREATHING PATTERN. absent: Accessory Muscle Use, Chest Wall Tenderness - Cardiovascular Exam Cardiovascular Exam: REGULAR RHYTHM, RRR, +S1, +S2. absent: Rubs - GI/Abdominal Exam GI & Abdominal Exam: Normal Bowel Sounds, Soft. absent: Firm - Extremities Exam Extremities exam: Positive for: normal inspection - Back Exam Back exam: NORMAL INSPECTION. absent: paraspinal tenderness - Neurological Exam Neurological exam: Alert, CN II-XII Intact - Psychiatric Exam Psychiatric exam: Normal Affect, Normal Mood - Skin Skin Exam: Dry, Intact, Normal Color Results - Vital Signs Recent Vital Signs: Last Vital Signs Temp 98.5 F 01/11/17 07:43 Pulse 89 01/11/17 07:43 Resp 20 01/11/17 07:43 BP 159/86 H 01/11/17 07:43 Pulse Ox 95 01/10/17 20:10 - Labs Result Diagrams: 01/11/17 07:45 Labs: Laboratory Results - last 24 hr 01/11/17 01/11/17 01/11/17 07:45 07:45 07:45 Fasting Glucose 89 Triglycerides 69 Cholesterol 150 LDL Cholesterol Direct 77 HDL Cholesterol 50 Free T4 1.38 TSH 3rd Generation 3.86 Valproic Acid 20 L Assessment & Plan - Assessment and Plan (Free Text) Assessment: Hyponatremia 2/2 polydipsia vs. intake -Na.135 (up from 131). -Na repleted. Advised patient to follow up with PMD after discharged from Psych unit. UTI -Macrobid was completed. -Patient currently denies any urinary symptoms. -Patient encouraged to follow up with PMD after being discharged from Psych unit. Acute psychosis, Hx of Bioplar disorder -Dr. Foster's note and recommendations appreciated. Will continue medication regimen per her recommendations. Hx of Schizophrenia -Discussed with patient med compliance. Encouraged to adhere to med orders. -Dr. Foster's note and recommendations appreciated. HTN -BP slightly elevated (159/86). Encouraged patient to f/u with PMD for BP management. Vital Signs: 98.5 F / 89 HR / 159/86 / 20 RR Patient denies any complaints upon examination. Patient Physical Exam was grossly benign. Patient is medically stable. We will sign off on this patient. Feel free to consult us again if needed. <Moises Salas - Last Filed: 01/17/17 18:34> Results - Vital Signs Recent Vital Signs: Last Vital Signs Temp 97.6 F 01/16/17 06:56 Pulse 69 01/16/17 08:20 Resp 19 01/16/17 06:56 BP 139/80 01/16/17 08:20 Pulse Ox 95 01/10/17 20:10 - Labs Result Diagrams: 01/11/17 07:45 Attending/Attestation - Attestation I have personally seen and examined this patient.: Yes I have fully participated in the care of the patient.: Yes I have reviewed all pertinent clinical information: Yes Notes (Text): I have seen and examined the patient at bedside. Agree with the above note with the following additions/ exceptions: Briefly this is 56 year old female with history of schizophrenia and hyponatremia who is admitted for management of schizophrenia.Manage as per psych. She also had hyponatremia probably secondary to polydipsia which has improved now. Patient already has completed macrobid treatment. Upon discharge patient will follow up with Dr Debbie Nagel. Dr Moises Salas
[2017-01-11 14:32] LABS: ALKALINE PHOSPHATASE 132 U/L (38-126); ALT/SGPT 10 U/L (7-56); AST/SGOT 37 U/L (14-36); BILIRUBIN,TOTAL 0.4 mg/dL (0.2-1.3); BLOOD UREA NITROGEN 11 mg/dL (7-21); CARBON DIOXIDE 27 mmol/L (21-33); CHLORIDE 98 mmol/L (98-107); GFR AFRICAN-AMERICAN > 60; GLUCOSE,RANDOM 89 mg/dL (70-110); POTASSIUM 4.7 mmol/L (3.6-5.0); SODIUM 135 mmol/L (132-148)
--- NOTE | 2017-01-11 16:38 | PCM.PSYCH ---
Initial Psychiatric Evaluation - Initial Psychiatric Evaluation Type of Admission: Voluntary Legal Status: Capacity (patient has capacity to sign consent for treatment) Chief Complaint (in patient's own words): 'I'm feeling fine" Patient's Reaction to Hospitalization: Patient was admitted for psychosis, inability to functioning, agitation, was posing risk for self and others patient needed to be medicated in the emergency room, with [facility] and [facility] History of Present Illness and Precipitating Events: shortly pt is 56yo F, not known previous psych h/o, was brought in by sister for evaluation of agitated, aggressive behavior, pt was not taking meds for the past four days, was not sleeping, was posing risk to self and others. pt was found to have low Na level and was admitted to the med side, labs WNL, was transferred to the psych unit 01/11/17. on the medical side pt was disruptive, agitated, threatened to break the TV, needed admission. pt was seen in her room, acceptable personal hygiene, good ADLs. pt is disorganized, irritable mood alternating with inappropriate smiling. pt said that she feels "just fine", pt was educated about tx plan, pt verbalized understanding. pt most likely was noncompliant with risperdal 1mg bid which was prescribed by PMD Dr.Ibrahim Lewis. pt denied thoughts of harming self or others, denied hearing voices or seeing things, but appears to be disorganized, but with much improvement. in ED pt verbalized that she was hearing voices and was observed talking to self. pt denied using drugs, smokes 1pack a day, nicotine patch provided, counseling provided. pt denied h/o abuse. as per h/o from pt's sister: "metal breakdowns" displaying similar sx and was hospiatlized on both occasions. family h/o: denied medical h/o: COPD and asthma, electrolite disbalance (better), UTI (on abx). social h/o: lives with family, does not work. medical f/u appreciated. 01/11/17 07:45 Lab Results 01/11/17 07:45: Valproic Acid 20 L 01/11/17 07:45: Free T4 1.38, TSH 3rd Generation 3.86 01/11/17 07:45: Sodium 135, Potassium 4.7, Chloride 98, Carbon Dioxide 27, Anion Gap 15, BUN 11, Creatinine 0.8, Est GFR ( Amer) > 60, Est GFR (Non- Af Amer) > 60, Random Glucose 89, Fasting Glucose 89, Calcium 10.0, Total Bilirubin 0.4, AST 37 H, ALT 10, Alkaline Phosphatase 132 H, Total Protein 8.0, Albumin 4.0, Globulin 4.0, Albumin/Globulin Ratio 1.0 L, Triglycerides 69, Cholesterol 150, LDL Cholesterol Direct 77, HDL Cholesterol 50 Vital Signs Temp Pulse Resp BP Pulse Ox 01/11/17 07:43 98.5 F 89 20 159/86 H 01/10/17 22:00 16 01/10/17 20:10 97.6 F 75 18 147/105 H 95 Current Medications: Active Medications Generic Name Dose Route Start Last Admin Trade Name Freq PRN Reason Stop Dose Admin Acetaminophen 650 mg 01/10/17 20:10 01/11/17 12:35 Tylenol 325mg Tab PO 650 mg Q4 PRN Administration Pain, Mild (1-3) Al Hydrox/Mg Hydrox/Simethicone 30 ml 01/10/17 20:10 Maalox Plus 30 Ml PO DAILY PRN Upset Stomach Magnesium Hydroxide 30 ml 01/10/17 20:10 Milk Of Magnesia PO DAILY PRN Constipation Nicotine 1 patch 01/11/17 15:15 01/11/17 15:13 Nicoderm Cq TD 1 patch DAILY HECTOR Administration Nitrofurantoin Macrocrystals 100 mg 01/11/17 06:00 01/11/17 06:59 Macrobid PO 100 mg Q12 HECTOR Administration Risperidone 1 mg 01/11/17 14:50 Risperdal Tab PO 0800,2200 HECTOR Protocol Zaleplon 5 mg 01/11/17 22:00 Sonata PO HS HECTOR Ziprasidone 20 mg 01/10/17 20:12 01/11/17 12:35 Geodon Cap PO 20 mg TID PRN Administration Agitation Protocol Ziprasidone 20 mg 01/10/17 20:12 01/11/17 05:07 Geodon Inj IM 20 mg TID PRN Administration Agitation Protocol Past Psychiatric History - Past Psychiatric History Previous Treatment History: Inpatient Prior Professional Help: see HPI Prior Psychiatric Treatment: see HPI At what hospital: see HPI Duration: see HPI Nature of Treatment: see HPI Explanation of prior treatment: see HPI History of Abuse: see HPI History of ETOH/Drug Use: see HPI h/o substance abuse but not currently History of Family Illness: denied Pertinent Medical Hx (Current Medical&Sleep Prob, Allergies): Allergies Allergy/AdvReac Type Severity Reaction Status Date / Time No Known Allergies Allergy Verified 01/10/17 23:58 Divalproex [Depakote DR] 0 mg PO DAILY 01/09/17 Risperidone [Risperdal] 0 mg PO DAILY 01/09/17 Review of Systems - Review of Systems Systems not reviewed;Unavailable: Acuity of Condition - EENT Eyes: As Per HPI Ears: As Per HPI Nose/Mouth/Throat: As Per HPI - Breasts Breasts: As Per HPI - Cardiovascular Cardiovascular: As Per HPI - Respiratory Respiratory: As Per HPI - Gastrointestinal Gastrointestinal: As Per HPI - Genitourinary Genitourinary: As Per HPI - Reproductive: Female Reproductive:Female: As Per HPI - Menstruation Menstruation: As Per HPI - Musculoskeletal Musculoskeletal: As Par HPI - Integumentary Integumentary: As Per HPI - Neurological Neurological: As Per HPI - Psychiatric Psychiatric: As Per HPI - Endocrine Endocrine: As Per HPI - Hematologic/Lymphatic Hematologic: As Per HPI Mental Status Examination - Personal Presentation Personal Presentation: Looks stated age - Affect Affect: Broad (expanded) - Motor Activity Motor Activity: Psychomotor Agitation - Reliability in Providing Information Reliability in Providing Information: Poor, due to alteration in thoughts, Poor , due to cognitve impairment - Speech Speech: Disorganized - Formal Thought Process Formal Thought Process: Hallucinations, Delusions, Paranoia, Loosening of associations - Hallucinations/Delusions Delusions: Persecution - Obsessions/Compulsions Obsessions: None Compulsions: None - Cognitive Functions Orientation: Person, Place Sensorium: Alert Attention/Concentration: Easily distracted Abstract Thinking: Douglas Estimate of Intelligence: Below average Judgement: Intact, as evidence by: Insight regarding need for hospitalization - Risk Risk: Self-mutilation, Diminished functioning - Strength & Assets Inventory Strength & Assets Inventory: Intelligence, Family support, Cooperative - Limitations Limitations: Other (h/o noncompliance with meds) DSM 5 DX - DSM 5 DSM 5 Diagnosis: psychosis nos r/o BD with psychosis r/o delirium due to electrolyte disbalance and UTI - Recommended/Plan of Treatment Treatment Recommendations and Plan of Treatment: milieu/structure/supportive therapy risperdal 1mg bid for psychosis, will be increased depakote resumed abx sw lilly collaterals from sister will monitor closely Projected ELOS: 5days Prognosis: fair Discharge Plan and Discharge Criteria: Pt will be not depressed or manic, will be more hopeful, will be not psychotic or anxious, will be not having thoughts of harming self or others, will be tolerating medications well, will not have major side effects, will be able to function, will not pose threat to self or others. - Smoking Cessation Smoking Cessation Initiated: Yes
[2017-01-11] MEDS: Divalproex 500 mg DR(BID formulation) PO SCH (21:29)
[2017-01-12] MEDS: Multivitamin Therapeutic Tab PO SCH (10:11)
[2017-01-12] MEDS: Divalproex 500 mg DR(BID formulation) PO SCH ×2 (14:10→21:30)
--- NOTE | 2017-01-12 15:25 | PCM.PYCHPN ---
Psychiatric Progress Note - Psychiatric Progress Note Patient seen today, length of contact: 30 min Patient Chief Complaint: 'I don't know why I am not sleeping..." Problems Identified/Issues Discussed: Suicide/ homicide prevention, past psychiatric h/o, current psychiatric symptoms , medical problems, risk/benefits and alternatives of medications, medications compliance, coping strategies, substance abuse h/o, relapse prevention, importance of follow up with psychiatrist and therapist, discharge plan. Medical Problems: COPD and asthma, electrolite disbalance (better), UTI (on abx). Diagnostic Results: 01/11/17 07:45 Lab Results 01/11/17 07:45: Valproic Acid 20 L 01/11/17 07:45: RPR Nonreactive 01/11/17 07:45: Free T4 1.38, TSH 3rd Generation 3.86 01/11/17 07:45: Sodium 135, Potassium 4.7, Chloride 98, Carbon Dioxide 27, Anion Gap 15, BUN 11, Creatinine 0.8, Est GFR ( Amer) > 60, Est GFR (Non- Af Amer) > 60, Random Glucose 89, Fasting Glucose 89, Calcium 10.0, Total Bilirubin 0.4, AST 37 H, ALT 10, Alkaline Phosphatase 132 H, Total Protein 8.0, Albumin 4.0, Globulin 4.0, Albumin/Globulin Ratio 1.0 L, Triglycerides 69, Cholesterol 150, LDL Cholesterol Direct 77, HDL Cholesterol 50 Vital Signs Temp Pulse Resp BP Pulse Ox 01/12/17 07:24 98.1 F 70 20 161/83 H 01/11/17 07:43 98.5 F 89 20 159/86 H 01/10/17 22:00 16 01/10/17 20:10 97.6 F 75 18 147/105 H 95 DSM 5 Symptoms Update: shortly pt is 56yo F, not known previous psych h/o, was brought in by sister for evaluation of agitated, aggressive behavior, pt was not taking meds for the past four days, was not sleeping, was posing risk to self and others. pt was found to have low Na level and was admitted to the med side, labs WNL, was transferred to the psych unit 01/11/17. on the medical side pt was disruptive, agitated, threatened to break the TV, needed admission. pt was seen today at the tx team meeting, pt presented with improved personal hygiene, good ADLs. pt obviously is improving, pt said that she still has problems to fall and to stay asleep. pt was offered ambien, willing to try. pt is less disorganized, more pleasant but at times inappropriate smiling. pt was educated about the potential dx, was educated about tx plan. pt verbalized understanding. pt tolerates meds well, no side effects observed or reported, AIMS 0, no EPS. Impression: DSM 5 Diagnosis: psychosis nos r/o BD with psychosis r/o delirium due to electrolyte disbalance and UTI Medication Change: Yes (ripserdal increased, ambien starteed) Medical Record Reviewed: Yes Consults ordered or reviewed: medical consult appreciated Mental Status Examination - Cognitive Function Orientation: Person, Place Memory: Intact Attention: Poor Concentration: Poor Association: WNL Fund of Knowledge: Poor - Mood Mood: Depressed (less) - Affect Affect: Broad (expanded) - Speech Speech: Appropriate - Formal Thought Process Formal Thought Process: Hallucinations (better), Delusions (better), Paranoia ( better), Loosening of associations (better) - Suicidal Ideation Suicidal Ideation: No - Homicidal Ideation Homicidal Ideation: No Goal/Treatment Plan - Goal/Treatment Plan Need for Continued Stay: Remain at risks for inpatient hospitalization, Severe depression anxiety, Discharge may exacerbated symptoms, Severe functional impairment Progress Toward Problem(s) and Goals/Treatment Plan: milieu/structure/supportive therapy risperdal 1mg po am and 2mg hs for psychosis ambien 5mg po hs for insomnia depakote resumed abx sw eval collaterals from sister will monitor closely Estimated Date of D/C: 01/16/17
--- NOTE | 2017-01-13 08:58 | PCM.PYCHPN ---
Psychiatric Progress Note - Psychiatric Progress Note Patient seen today, length of contact: 25 min Patient Chief Complaint: "okay" Problems Identified/Issues Discussed: I reviewed assessment and recent notes. Patient was interviewed at bedside. She is calm, groomed and oriented. Reports that she's feeling "okay" and she denies any new concerns except restless sleep last night. She communicates easily and range is full. She denies AH or VH. Presently she denies any new side effects, pain or discomfort. Nursing notes indicate that patient has been cheerful, talkative and agreeable. Elevated but redirectable. There were no behavioral issues overnight Diagnostic Results: psychosis nos r/o BD with psychosis r/o delirium due to electrolyte disbalance and UTI Medication Change: Yes (Ambien increased to 10 mg po HS on 01/13/17) Medical Record Reviewed: Yes Mental Status Examination - Cognitive Function Orientation: Person, Place Memory: Intact Attention: Poor Concentration: Poor Association: WNL Fund of Knowledge: Poor - Mood Mood: Depressed ("okay") - Affect Affect: Broad (expanded) - Speech Speech: Appropriate - Formal Thought Process Formal Thought Process: Hallucinations (denies), Delusions (better), Paranoia ( denies), Loosening of associations (better) - Suicidal Ideation Suicidal Ideation: No - Homicidal Ideation Homicidal Ideation: No Goal/Treatment Plan - Goal/Treatment Plan Need for Continued Stay: Remain at risks for inpatient hospitalization, Severe depression anxiety, Discharge may exacerbated symptoms, Severe functional impairment Progress Toward Problem(s) and Goals/Treatment Plan: * c/w current tx and plan * Ambien increased to 10 mg po HS on 01/13/17 * No new weekend labs thus far * Vitals reviewed and noted below: Selected Entries 01/11/17 01/12/17 01/12/17 07:43 07:24 16:00 Temperature 98.5 F 98.1 F Pulse Rate 89 70 104 H Respiratory 20 20 Rate Blood Pressure 159/86 H 161/83 H 149/88 Estimated Date of D/C: 01/16/17
[2017-01-13] MEDS: Divalproex 500 mg DR(BID formulation) PO SCH ×2 (09:35→21:55)
[2017-01-13] MEDS: Multivitamin Therapeutic Tab PO SCH (09:37)
--- NOTE | 2017-01-14 04:54 | PCM.PYCHPN ---
Psychiatric Progress Note - Psychiatric Progress Note Patient seen today, length of contact: 25 min Patient Chief Complaint: "okay" Problems Identified/Issues Discussed: I reviewed assessment and recent notes. Patient was interviewed at bedside. She is calm, groomed and oriented. Reports that she's feeling "okay" and she denies any new concerns except restless sleep last night. She communicates easily and range is full. She denies AH or VH. Presently she denies any new side effects, pain or discomfort. Nursing notes indicate that patient has been cheerful, talkative and agreeable. Elevated but redirectable. There were no behavioral issues overnight Diagnostic Results: psychosis nos r/o BD with psychosis r/o delirium due to electrolyte disbalance and UTI Medication Change: Yes (Ambien increased to 10 mg po HS on 01/13/17) Medical Record Reviewed: Yes Mental Status Examination - Cognitive Function Orientation: Person, Place Memory: Intact Attention: Poor Concentration: Poor Association: WNL Fund of Knowledge: Poor - Mood Mood: Depressed ("okay") - Affect Affect: Broad (expanded) - Speech Speech: Appropriate - Formal Thought Process Formal Thought Process: Hallucinations (denies), Delusions (better), Paranoia ( denies), Loosening of associations (better) - Suicidal Ideation Suicidal Ideation: No - Homicidal Ideation Homicidal Ideation: No Goal/Treatment Plan - Goal/Treatment Plan Need for Continued Stay: Remain at risks for inpatient hospitalization, Severe depression anxiety, Discharge may exacerbated symptoms, Severe functional impairment Progress Toward Problem(s) and Goals/Treatment Plan: * c/w current tx and plan * Ambien increased to 10 mg po HS on 01/13/17 * No new weekend labs thus far * Vitals reviewed and noted below: Selected Entries 01/13/17 01/13/17 16:05 16:44 Temperature 97.2 F L Pulse Rate 72 80 Respiratory 20 Rate Blood Pressure 140/80 138/80 Estimated Date of D/C: 01/16/17
[2017-01-14] MEDS: Multivitamin Therapeutic Tab PO SCH (08:29)
--- NOTE | 2017-01-14 08:53 | PCM.PYCHPN ---
Psychiatric Progress Note - Psychiatric Progress Note Patient seen today, length of contact: 25 min Patient Chief Complaint: "better" Problems Identified/Issues Discussed: I reviewed recent notes and patient was interviewed at bedside. She is calm, groomed and oriented. Reports that she's feeling better and she denies any new concerns, slept better last night. She communicates easily and range is full. She denies AH or VH. Presently she denies any new side effects. Indicates she would like to see a software development advisor. Nursing notes indicate that patient has been visible, cheerful, talkative and agreeable on the unit. Elevated but redirectable. There were no behavioral issues over the weekend. Medication Change: Yes (Ambien increased to 10 mg po HS on 01/13/17) Medical Record Reviewed: Yes Mental Status Examination - Cognitive Function Orientation: Person, Place Memory: Intact Attention: Poor Concentration: Poor Association: WNL Fund of Knowledge: Poor - Mood Mood: Depressed ("better") - Affect Affect: Broad (expanded) - Speech Speech: Appropriate - Formal Thought Process Formal Thought Process: Hallucinations (denied all weekend), Delusions (better) , Paranoia (denies), Loosening of associations (better) - Suicidal Ideation Suicidal Ideation: No - Homicidal Ideation Homicidal Ideation: No Goal/Treatment Plan - Goal/Treatment Plan Need for Continued Stay: Remain at risks for inpatient hospitalization, Severe depression anxiety, Discharge may exacerbated symptoms, Severe functional impairment Progress Toward Problem(s) and Goals/Treatment Plan: * c/w current tx and plan * Ambien increased to 10 mg po HS on 01/13/17 * No new weekend labs * Vitals reviewed and noted below: Selected Entries 01/13/17 01/13/17 16:05 16:44 Temperature Oral Source Pulse Rate 72 80 Respiratory 20 Rate Blood Pressure 140/80 138/80 Estimated Date of D/C: 01/16/17
[2017-01-14] MEDS: Divalproex 500 mg DR(BID formulation) PO SCH ×2 (09:14→21:08)
[2017-01-15] MEDS: Multivitamin Therapeutic Tab PO SCH (09:05)
[2017-01-15] MEDS: Divalproex 500 mg DR(BID formulation) PO SCH ×2 (09:05→21:22)
--- NOTE | 2017-01-15 15:01 | PCM.PYCHPN ---
Psychiatric Progress Note - Psychiatric Progress Note Patient seen today, length of contact: 30min Patient Chief Complaint: 'I was screaming at er f..k you..." Problems Identified/Issues Discussed: Suicide/ homicide prevention, past psychiatric h/o, current psychiatric symptoms , medical problems, risk/benefits and alternatives of medications, medications compliance, coping strategies, substance abuse h/o, relapse prevention, importance of follow up with psychiatrist and therapist, discharge plan. Medical Problems: COPD and asthma, electrolite disbalance (better), UTI (on abx). Diagnostic Results: 01/11/17 07:45 Lab Results 01/11/17 07:45: Valproic Acid 20 L 01/11/17 07:45: RPR Nonreactive 01/11/17 07:45: Free T4 1.38, TSH 3rd Generation 3.86 01/11/17 07:45: Sodium 135, Potassium 4.7, Chloride 98, Carbon Dioxide 27, Anion Gap 15, BUN 11, Creatinine 0.8, Est GFR ( Amer) > 60, Est GFR (Non- Af Amer) > 60, Random Glucose 89, Fasting Glucose 89, Calcium 10.0, Total Bilirubin 0.4, AST 37 H, ALT 10, Alkaline Phosphatase 132 H, Total Protein 8.0, Albumin 4.0, Globulin 4.0, Albumin/Globulin Ratio 1.0 L, Triglycerides 69, Cholesterol 150, LDL Cholesterol Direct 77, HDL Cholesterol 50 Vital Signs Temp Pulse Resp BP Pulse Ox 01/12/17 07:24 98.1 F 70 20 161/83 H 01/11/17 07:43 98.5 F 89 20 159/86 H 01/10/17 22:00 16 01/10/17 20:10 97.6 F 75 18 147/105 H 95 DSM 5 Symptoms Update: shortly pt is 56yo F, not known previous psych h/o, was brought in by sister for evaluation of agitated, aggressive behavior, pt was not taking meds for the past four days, was not sleeping, was posing risk to self and others. pt was found to have low Na level and was admitted to the med side, labs WN, was transferred to the psych unit 01/11/17. t was seen today at the TV area, pt presented with improved personal hygiene, good ADLs. pt obviously is improving, pt said that she is doing better, pt acknowledged that "I was very agitated at the Emergency room, I was screaming f/ //k you, it is not me, I am not a bad person", pt was asking intelligent questions about d/c planning and f/u appt. pt is less disorganized, more pleasant but at times inappropriate smiling. pt was educated about the potential dx, was educated about tx plan. pt verbalized understanding. pt tolerates meds well, no side effects observed or reported, AIMS 0, no EPS. Impression: DSM 5 Diagnosis: psychosis nos r/o BD with psychosis r/o delirium due to electrolyte disbalance and UTI Medication Change: No Medical Record Reviewed: Yes Consults ordered or reviewed: medical consult appreciated Mental Status Examination - Cognitive Function Orientation: Person, Place Memory: Intact Attention: Poor (improvement) Concentration: Poor (improvement) Association: WNL Fund of Knowledge: Poor - Mood Mood: Depressed ("better") - Affect Affect: Broad (expanded) - Speech Speech: Appropriate - Formal Thought Process Formal Thought Process: Hallucinations (denied all weekend), Delusions (better) , Paranoia (denies), Loosening of associations (better) - Suicidal Ideation Suicidal Ideation: No - Homicidal Ideation Homicidal Ideation: No Goal/Treatment Plan - Goal/Treatment Plan Need for Continued Stay: Remain at risks for inpatient hospitalization, Severe depression anxiety, Discharge may exacerbated symptoms, Severe functional impairment Progress Toward Problem(s) and Goals/Treatment Plan: milieu/structure/supportive therapy risperdal 1mg po am and 2mg hs for psychosis ambien 10mg po hs for insomnia depakote resumed abx sw eval collaterals from sister will monitor closely Estimated Date of D/C: 01/16/17
[2017-01-16 06:56] VITALS: BP 139/80; PULSE 69; RESP 19; TEMP 97.6
[2017-01-16] MEDS: Multivitamin Therapeutic Tab PO SCH (08:21)
[2017-01-16] MEDS: Divalproex 500 mg DR(BID formulation) PO SCH (08:48)
--- NOTE | 2017-01-16 13:45 | PCM.PYCHDC ---
Mental Status Examination - Mental Status Examination Orientation: Person, Place, Situation, Time Memory: Intact Mood: Neutral Affect: Broad (mood congruent) Speech: Appropriate Attention: WNL Concentration: WNL Association: WNL Fund of Knowledge: WNL Formal Thought Process: No Impairment Description of patient's judgement and insight: Pt has improved insight into mental and medical illness, pt was compliant with medications and unit rules and regulations, pt was going to groups, was calm, cooperative, socially appropriate, no behavioral incidents, no agitation, no aggression. Psychotic Thoughts and Behaviors: Pt denied v/a/t hallucinations, denied paranoid ideations, pt does not appear to be psychotic, and thought process is goal directed. Suicidal Ideation: No Current Homicidal Ideation?: No Plan: pt adamantly denied thoughts of harming self or others denied intent or plan. Discharge Summary - Discharge Note Reason for Hospitalization: Patient was admitted for psychosis, inability to functioning, agitation, was posing risk for self and others patient needed to be medicated in the emergency room, with [facility] Psychiatric History (includes Medical, Family, Personal Hx): see HPI Laboratory Data: 01/11/17 07:45 Lab Results 01/11/17 07:45: Valproic Acid 20 L 01/11/17 07:45: RPR Nonreactive 01/11/17 07:45: Free T4 1.38, TSH 3rd Generation 3.86 01/11/17 07:45: Sodium 135, Potassium 4.7, Chloride 98, Carbon Dioxide 27, Anion Gap 15, BUN 11, Creatinine 0.8, Est GFR ( Amer) > 60, Est GFR (Non- Af Amer) > 60, Random Glucose 89, Fasting Glucose 89, Calcium 10.0, Total Bilirubin 0.4, AST 37 H, ALT 10, Alkaline Phosphatase 132 H, Total Protein 8.0, Albumin 4.0, Globulin 4.0, Albumin/Globulin Ratio 1.0 L, Triglycerides 69, Cholesterol 150, LDL Cholesterol Direct 77, HDL Cholesterol 50 Vital Signs Temp Pulse Resp BP Pulse Ox 01/16/17 08:20 69 139/80 01/16/17 06:56 97.6 F 69 19 139/80 01/15/17 16:00 86 147/74 01/15/17 09:05 73 140/91 H 01/15/17 07:34 97.7 F 71 20 140/91 H 01/14/17 16:48 77 147/84 01/14/17 08:29 72 135/90 01/14/17 07:26 97.3 F L 72 20 135/90 01/13/17 16:44 80 138/80 01/13/17 16:05 97.2 F L 72 20 140/80 01/13/17 09:34 72 148/79 01/13/17 06:55 97.2 F L 72 18 148/79 01/12/17 16:00 104 H 149/88 01/12/17 07:24 98.1 F 70 20 161/83 H 01/11/17 07:43 98.5 F 89 20 159/86 H 01/10/17 22:00 16 01/10/17 20:10 97.6 F 75 18 147/105 H 95 Consultations:: List each consultation separately and include: 1. Reason for request. 2. Findings. 3. Follow-up Consultations: medical consult appreciated see notes for more detailed information Summary of Hospital Course include:: 1. Description of specific treatment plan utilized for patients during their course of treatmen. 2. Summarize the time- course for resolution of acute symptoms and/or regressed behaviors. 3. Describe issues identified and worked on during hospitalization. 4. Describe medication utilized. 5. Describe medical problems identified and treated. 6. Reassessment of suicide risk Summary of Hospital Course: shortly pt is 56yo F, not known previous psych h/o, was brought in by sister for evaluation of agitated, aggressive behavior, pt was not taking meds for the past four days, was not sleeping, was posing risk to self and others. pt was found to have low Na level and was admitted to the med side, [facility], was transferred to the psych unit 01/11/17. on the medical side pt was disruptive, agitated, threatened to break the TV, needed admission. initially pt was seen in her room, acceptable personal hygiene, good ADLs. pt is disorganized, irritable mood alternating with inappropriate smiling. pt most likely was noncompliant with risperdal 1mg bid which was prescribed by PMD Dr.Ibrahim Lewis. pt denied thoughts of harming self or others, denied hearing voices or seeing things, but appears to be disorganized, but with much improvement. in ED pt verbalized that she was hearing voices and was observed talking to self. pt denied using drugs, smokes 1pack a day, nicotine patch provided, counseling provided. pt denied h/o abuse. as per h/o from pt's sister: "metal breakdowns" displaying similar sx and was hospiatlized on both occasions. family h/o: denied medical h/o: COPD and asthma, electrolite disbalance (better), UTI (on abx). social h/o: lives with family, does not work. medical f/u appreciated. 01/11/17 07:45 Lab Results 01/11/17 07:45: Valproic Acid 20 L 01/11/17 07:45: Free T4 1.38, TSH 3rd Generation 3.86 01/11/17 07:45: Sodium 135, Potassium 4.7, Chloride 98, Carbon Dioxide 27, Anion Gap 15, BUN 11, Creatinine 0.8, Est GFR ( Amer) > 60, Est GFR (Non- Af Amer) > 60, Random Glucose 89, Fasting Glucose 89, Calcium 10.0, Total Bilirubin 0.4, AST 37 H, ALT 10, Alkaline Phosphatase 132 H, Total Protein 8.0, Albumin 4.0, Globulin 4.0, Albumin/Globulin Ratio 1.0 L, Triglycerides 69, Cholesterol 150, LDL Cholesterol Direct 77, HDL Cholesterol 50 Vital Signs Temp Pulse Resp BP Pulse Ox 01/11/17 07:43 98.5 F 89 20 159/86 H 01/10/17 22:00 16 01/10/17 20:10 97.6 F 75 18 147/105 H 95 over the course of this hospitalization patient was stabilized on the following medication: Depakote was resumed 500 mg twice a day for mood stabilization Risperdal was increased to 20 mg twice a day for psychotic symptoms Ambien was started and increased to 10 mg at the nighttime for insomnia Patient tolerated medications well, no side effects observed or reported, aims 0 , no EPS. Patient was seen by medical team, was continued on antibiotics for urinary tract infection. Please see medical team notes for more detailed information. Patient improved significantly, mood improving, there is no psychotic or disruptive behavior, patient is compliant with the medications, going to groups. As per staff patient sister came over yesterday and reported that patient is not at her baseline yet but patient refused to stay in the hospital was to be discharged, patient does not meet the criteria for screening, from this va underwriter perspective patient is doing much better it will be not fair for the patient to be discharged AGAINST MEDICAL ADVICE. Patient has future plans to go and follow up with outpatient psychiatrist Dr. Jurado. At the time of the discharge pt denied been depressed, denied thoughts of harming self or others, denied psychotic symptoms, and pt does not appeared to be psychotic, denied been anxious, pt is not in imminent danger to self or others, will be following up at 's office, information about follow up appointment, time and address provided to the pt, it is patient responsibility to follow up with outpatient clinic, PMD as well as specialists (see note for more detailed information). In case pt will need to obtain results of studies pending at discharge pt was provided with contact information of Psychiatric Inpatient unit [phone] as well as Medical Record Department [phone]. Nicotine patch was offered Counseling about smoking cessation provided [facility] information was provided by the pt was provided with prescriptions for all of medications (please see medication reconciliation form) Pt was educated about safety plan in case of worsening of symptoms or in case of suicidal or homicidal ideation call 911 or go to the nearest ER, also was educated to take meds as prescribed and stay away from drugs, pt verbalized understanding. In regards of the patient diagnosis most likely was combination of factors, patient was noncompliant with the medications, on top of that patient had urinary tract infection which could give patient delirium stage as well as worsening of her bipolar symptoms. - Diagnosis (1) Bipolar disorder Current Visit: Yes Status: Chronic Priority: Medium (2) Hyponatremia Current Visit: No Status: Acute Priority: High (3) Delirium due to another medical condition Current Visit: Yes Status: Resolved Comment: delirium resolved - Final Diagnosis (DSM 5) Condition upon Discharge: GOOD Disposition: HOME/ ROUTINE Follow-up Treatment Plan: At the time of the discharge pt denied been depressed, denied thoughts of harming self or others, denied psychotic symptoms, and pt does not appeared to be psychotic, denied been anxious, pt is not in imminent danger to self or others, will be following up at 's office, information about follow up appointment, time and address provided to the pt, it is patient responsibility to follow up with outpatient clinic, PMD as well as specialists (see note for more detailed information). In case pt will need to obtain results of studies pending at discharge pt was provided with contact information of Psychiatric Inpatient unit [phone] as well as Medical Record Department [phone]. Nicotine patch was offered Counseling about smoking cessation provided [facility] [place] information was provided by the pt was provided with prescriptions for all of medications (please see medication reconciliation form) Pt was educated about safety plan in case of worsening of symptoms or in case of suicidal or homicidal ideation call 911 or go to the nearest ER, also was educated to take meds as prescribed and stay away from drugs, pt verbalized understanding. Prescriptions/Medication Reconciliation: amLODIPine [Norvasc] 5 mg PO DAILY #14 tab Divalproex [Depakote DR(*BID*)] 500 mg PO AMHS #30 tcp Famotidine [Pepcid] 40 mg PO HS #14 tab Montelukast [Singulair] 10 mg PO DAILY #14 tab Multivitamin Therapeutic Tab [Thera Tab] 1 tab PO DAILY #14 tab Nicotine 21 mg/24 hr [Nicoderm Cq] 1 patch TD DAILY #14 patch risperiDONE [RisperDAL Tab] 2 mg PO AMHS #30 tab Zolpidem Tartrate [Ambien] 10 mg PO HS #14 tablet - Smoking Cessation Smoking Cessation Medication prescribed: Yes - Antipsychotic Medications Pt discharged on 2 or more routine antipsychotic medications: No
== END 2017-01-16 18:19 | disposition home or self-care (01) | DRG 430 ==
LOC: PSYC 19:20
PROVIDERS: ADMIT Psychiatry & Neurology Psychiatry; ATTEND Psychiatry & Neurology Psychiatry
DX: F31.9 Bipolar disorder, unspecified (principal); F05 Delirium due to known physiological condition; E87.1 Hypo-osmolality and hyponatremia; N39.0 Urinary tract infection, site not specified; J44.9 Chronic obstructive pulmonary disease, unspecified; F23 Brief psychotic disorder; F20.9 Schizophrenia, unspecified; I10 Essential (primary) hypertension; G47.00 Insomnia, unspecified; Z91.14 Patient's other noncompliance with medication regimen; F17.200 Nicotine dependence, unspecified, uncomplicated

== ENCOUNTER 2017-01-17 07:48 | Inpatient (IN) | payer OTHER, MEDICAID ==
[2017-01-17 07:52] VITALS: BMI 30.2
--- NOTE | 2017-01-17 08:23 | ED PDOC ---
Arrival/HPI - General Chief Complaint: Psychiatric Evaluation Time Seen by Provider: 01/17/17 08:02 Historian: Patient - History of Present Illness Narrative History of Present Illness (Text): 01/17/17 08:00 Jeannie Haque is a 56 year old female who presents to the emergency department for psych evaluation. Patient reports she got into an argument with her brother prior to arrival. EMS states according to patient's brother, she had been acting disorderly and screaming. Patient is currently denying any complaints. PMD: None Time/Duration: Prior to Arrival Symptom Onset: Sudden Symptom Course: Other (psych eval) Activities at Onset: Emotional Upset Context: Home Past Medical History - Provider Review Nursing Documentation Reviewed: Yes - Infectious Disease Hx of Infectious Diseases: None - Reproductive Menopause: Yes - Cardiac Hx Cardiac Disorders: No - Pulmonary Hx Tuberculosis: No - Neurological HX Cerebrovascular Accident: No Hx Seizures: No - Hematological/Oncological Hx Cancer: No - Musculoskeletal/Rheumatological Hx Falls: No - Genitourinary/Gynecological Hx Sexually Transmitted Diseases: No - Psychiatric Hx Bipolar Disorder: Yes Hx Schizophrenia: Yes Hx Substance Use: No - Anesthesia Hx Anesthesia: No Family/Social History - Physician Review Nursing Documentation Reviewed: Yes Family/Social History: Unknown Family HX Smoking Status: Current Some Days Smoker Hx Alcohol Use: No Hx Substance Use: No Allergies/Home Meds Allergies/Adverse Reactions: Allergies No Known Allergies Allergy (Verified 01/10/17 23:58) Home Medications: Home Meds Medication Instructions Recorded Confirmed Divalproex [Depakote DR] 0 mg PO DAILY 01/09/17 01/10/17 Risperidone [Risperdal] 0 mg PO DAILY 01/09/17 01/10/17 Review of Systems - Review of Systems Constitutional: absent: Fevers Respiratory: absent: SOB Cardiovascular: absent: Chest Pain Gastrointestinal: absent: Abdominal Pain Neurological: absent: Headache Psychiatric: Other (Agitated) Physical Exam Vital Signs Reviewed: Yes Vital Signs Temp Pulse Resp BP Pulse Ox 01/17/17 08:23 96.8 F L 90 16 165/86 H 96 Temperature: Afebrile Blood Pressure: Hypertensive Pulse: Regular Respiratory Rate: Normal Appearance: Positive for: Well-Appearing, Non-Toxic, Comfortable Pain Distress: None Mental Status: Positive for: Alert and Oriented X 3 - Systems Exam Head: Present: Atraumatic, Normocephalic Pupils: Present: PERRL Extroacular Muscles: Present: EOMI Conjunctiva: Present: Normal Mouth: Present: Moist Mucous Membranes Neck: Present: Normal Range of Motion Respiratory/Chest: Present: Clear to Auscultation, Good Air Exchange. No: Respiratory Distress, Accessory Muscle Use Cardiovascular: Present: Regular Rate and Rhythm, Normal S1, S2. No: Murmurs Abdomen: Present: Normal Bowel Sounds. No: Tenderness, Distention, Peritoneal Signs Upper Extremity: Present: Normal Inspection, Normal ROM. No: Cyanosis, Edema Lower Extremity: Present: Normal Inspection, Normal ROM. No: Edema Neurological: Present: GCS=15, CN II-XII Intact. No: Speech Normal (pressured speech) Skin: Present: Warm, Dry, Normal Color. No: Rashes Psychiatric: Present: Alert, Oriented x 3, Normal Insight, Normal Concentration , Agitated (mildly) Medical Decision Making ED Course and Treatment: 01/17/17 Impression: 56 year old female for psych eval. Mildly agitated with pressured speech. Differential Diagnosis included but are not limited to: psychosis vs. schizophrenia Plan: -- EKG -- Chest X-ray -- Urinalysis -- Labs -- Reassess and disposition Progress Notes: EKG: Ordered, reviewed, and independently interpreted the EKG. Rate : 87 BPM Rhythm : NSR Interpretation : No ST-segment elevations or depressions, no T-wave inversions, normal intervals. 01/17/17 10:14 Patient's blood work results show severe hyponatremia. NS IVF already started. I consulted Dr. Yolette Salas from the ICU who will accept the case and started the patient on hypertonic saline. I discussed the case with Dr. Alarcon who will place the admission under the hospitalist service. - Critical Care Critical Care Minutes: 30 minutes - Lab Interpretations Lab Results: 01/17/17 09:14 01/17/17 09:14 Lab Results 01/17/17 09:14: Alcohol, Quantitative < 10 01/17/17 09:14: Salicylates < 1 L, Acetaminophen < 10.0 L 01/17/17 09:14: Sodium 116 L*, Potassium 4.1, Chloride 76 L D, Carbon Dioxide 33 , Anion Gap 11, BUN 9, Creatinine 0.6, Est GFR ( Amer) > 60, Est GFR (Non -Af Amer) > 60, Random Glucose 96, Calcium 9.4, Total Bilirubin 0.9, AST 48 H D , ALT 34, Alkaline Phosphatase 137 H, Total Protein 7.9, Albumin 4.0, Globulin 3.9, Albumin/Globulin Ratio 1.0 L 01/17/17 09:14: WBC 15.0 H D, RBC 3.89, Hgb 12.7, Hct 34.1 L, MCV 87.7 D, MCH 32.6, MCHC 37.2 H, RDW 12.0, Plt Count 253, MPV 9.8, Gran % 80.0 H, Lymph % ( Auto) 11.3 L, Nicholas % (Auto) 8.5 H, Eos % (Auto) 0.1 L, Baso % (Auto) 0.1, Gran # 11.96 H, Lymph # 1.7, Nicholas # 1.3 H, Eos # 0.0, Baso # 0.02 low sodium, elev wbc Interpretation: Abnormal lab values - RAD Interpretation Radiology Orders: 01/17/17 09:20 CXR [CHEST PORTABLE] [RAD] Stat Raw Shellfish Preparer: Radiologist - EKG Interpretation Interpreted by ED Physician: Yes Type: 12 lead EKG - Medication Orders Current Medication Orders: Sodium Chloride (Sodium Chloride 0.9%) 1,000 mls @ 150 mls/hr IV .Q6H40M HECTOR Last Admin: 01/17/17 10:07 Dose: 150 mls/hr Sodium Chloride (Hypertonic Saline 3%) 100 mls @ 50 mls/hr IV .Q2H ONE Stop: 01/17/17 11:59 - Scribe Statement The provider has reviewed the documentation as recorded by the Lena Marie Provider Scribe Attestation: All medical record entries made by the Lena were at my direction and personally dictated by me. I have reviewed the chart and agree that the record accurately reflects my personal performance of the history, physical exam, medical decision making, and the department course for this patient. I have also personally directed, reviewed, and agree with the discharge instructions and disposition. Disposition/Present on Arrival - Present on Arrival Any Indicators Present on Arrival: No History of DVT/PE: No History of Uncontrolled Diabetes: No Urinary Catheter: No History of Decub. Ulcer: No History Surgical Site Infection Following: None - Disposition Have Diagnosis and Disposition been Completed?: Yes Diagnosis: Hyponatremia Disposition: HOSPITALIZED Disposition Time: 10:15 Patient Plan: Admission Condition: SERIOUS Referrals: Debbie Nagel MD [Primary Care Provider] - Follow up with primary Forms: [employer] (Slovenian)
[2017-01-17 09:18] LABS: BASO # 0.02 K/mm3 (0.0-2.0); BASO % 0.1 % (0.0-3.0); EOS % 0.1 % (1.5-5.0); GRAN # 11.96 (1.4-6.5); HEMATOCRIT 34.1 % (36.0-48.0); LYMPH # 1.7 (1.2-3.4); LYMPH % 11.3 % (22.0-35.0); MEAN CELL VOLUME 87.7 fl (80.0-105.0); MEAN CORPUSCULAR HEMOGLOBIN 32.6 pg (25.0-35.0); MEAN CORPUSCULAR HGB CONC 37.2 g/dl (31.0-37.0); MEAN PLATELET VOLUME 9.8 fl (7.0-11.0); MONO # 1.3 (0.1-0.6); MONO % 8.5 % (1.0-6.0)
[2017-01-17 09:26] LABS: ALKALINE PHOSPHATASE 137 U/L (38-126); ALT/SGPT 34 U/L (7-56); AST/SGOT 48 U/L (14-36); BILIRUBIN,TOTAL 0.9 mg/dL (0.2-1.3); BLOOD UREA NITROGEN 9 mg/dL (7-21); CALCIUM 9.4 mg/dL (8.4-10.5); CARBON DIOXIDE 33 mmol/L (21-33); CHLORIDE 76 mmol/L (98-107); GFR AFRICAN-AMERICAN > 60; GLUCOSE,RANDOM 96 mg/dL (70-110); POTASSIUM 4.1 mmol/L (3.6-5.0); TOTAL PROTEIN 7.9 g/dL (5.8-8.3)
[2017-01-17 09:32] LABS: SODIUM 116 mmol/L (132-148)
[2017-01-17] MEDS ORDERED: Sodium Chloride 0.9% 1,000 ML IV SCH (09:45)
--- NOTE | 2017-01-17 09:51 | RAD ---
HISTORY: psych COMPARISON: 01/10/2017 FINDINGS: LUNGS: No active pulmonary disease. PLEURA: No significant pleural effusion identified, no pneumothorax apparent. CARDIOVASCULAR: Normal. OSSEOUS STRUCTURES: No significant abnormalities. VISUALIZED UPPER ABDOMEN: Normal. OTHER FINDINGS: None. IMPRESSION: No active disease.
[2017-01-17] MEDS ORDERED: Sodium Chloride 3% 100 ML IV ONE (10:00)
[2017-01-17 10:18] LABS: PH,URINE 8.5 (4.7-8.0); URINE BILIRUBIN NEGATIVE (NEGATIVE); URINE BLOOD LARGE (NEGATIVE); URINE GLUCOSE (UA) NEGATIVE (NEGATIVE); URINE KETONE NEGATIVE (NEGATIVE); URINE LEUKOCYTE ESTERASE TRACE Leu/uL (NEGATIVE); URINE PROTEIN TRACE mg/dL (<30 mg/dL)
[2017-01-17 10:19] LABS: URINE APPEARANCE CLEAR (CLEAR); URINE COLOR LIGHT YELLOW (YELLOW)
[2017-01-17 10:21] LABS: URINE WBC NEGATIVE /hpf (0-6)
[2017-01-17] MEDS ORDERED: cefTRIAXone 2 GM IN NS 2 GM/100 ML BAG IVPB STA (10:38)
--- NOTE | 2017-01-17 10:57 | CP.CCUPN ---
CCU Subjective - Physician Review Events Since Last Encounter (Free Text): 01/17/17 10:50 56 y/o F with recent admission and discharge from inpatient PSYCH presents tot he ER confused, agitated ,delusional . She was found to also have an elevated WBC, LE + UTI, and NA 116. In the setting of her recent Admission her organic causes have to be ruled out before treating the Psych episode. CCU Objective - Vital Signs / Intake & Output Vital Signs (Last 4 hours): Vital Signs Pulse Resp BP Pulse Ox 01/17/17 10:37 87 19 142/79 98 - Physical Exam Physical Exam Limitations: Positive for: Altered Mental Status Head: Positive for: Atraumatic, Normocephalic Pupils: Positive for: PERRL Extroacular Muscles: Positive for: EOMI Conjunctiva: Positive for: Normal Mouth: Positive for: Moist Mucous Membranes Pharnyx: Positive for: Normal Nose (Internal): Positive for: Normal Inspection Neck: Positive for: Normal Range of Motion Respiratory/Chest: Positive for: Clear to Auscultation, Good Air Exchange. Negative for: Respiratory Distress, Accessory Muscle Use Cardiovascular: Positive for: Regular Rate and Rhythm, Normal S1, S2. Negative for: Murmurs Abdomen: Positive for: Normal Bowel Sounds. Negative for: Tenderness, Distention, Peritoneal Signs Upper Extremity: Positive for: Normal Inspection, Normal ROM. Negative for: Cyanosis, Edema Lower Extremity: Positive for: Normal Inspection, Normal ROM. Negative for: Edema Neurological: Positive for: GCS=15, CN II-XII Intact, Normal Sensory Function. Negative for: Speech Normal (pressured speech) Skin: Positive for: Warm, Dry, Normal Color. Negative for: Rashes Psychiatric: Positive for: Alert, Oriented x 3, Agitated (mildly), Delusional, Hallucinations - Medications Active Medications: Active Medications Generic Name Dose Route Start Last Admin Trade Name Freq PRN Reason Stop Dose Admin Sodium Chloride 1,000 mls @ 150 mls/hr 01/17/17 09:45 01/17/17 10:07 Sodium Chloride 0.9% IV 150 mls/hr .Q6H40M HECTOR Administration Sodium Chloride 100 mls @ 50 mls/hr 01/17/17 10:00 01/17/17 10:33 Hypertonic Saline 3% IV 01/17/17 11:59 50 mls/hr .Q2H ONE Administration Ceftriaxone Sodium 2 gm in 100 mls @ 100 mls/hr 01/17/17 10:38 Rocephin 2 Gm Ivpb IVPB 01/17/17 11:37 STAT STA Protocol - Patient Studies Lab Studies: Lab Studies 01/17/17 Range/Units 10:16 Valproic Acid 57 (50.0-100.0) ug/mL Laboratory Results - last 24 hr 01/17/17 10:16 Valproic Acid 57 Review of Systems - Review of Systems Systems not reviewed;Unavailable: Altered Mental Status Assessment/Plan - Assessment and Plan (Free Text) Assessment: 56 y/o F w/ AMS in the setting of Hyponatremia and acute psychotic episode Hyponatremia 116, recent NA > 130 5 days prior. Acute setting therefore shoul dbe safe to correct quicker. 3% 50ml/ hr x 2 hrs and repeat NA every 4 hrs. Low CL also suggests volume loss. Urine electrolytes pending, FENA, Urine and serum NA pending. Depakote levels, Urine drug screen pending. Psych consult needed as well in the event multiple medications could have causes SIADH. Will evaluate once lab values return. No current or recent seizures. Elevated WBC w/ concern for incomplete UTI treatment. Rocephin started. urine cx pending. DVT P SCD cc time 55 min
--- NOTE | 2017-01-17 13:24 | CARD ---
APPROVED REPORT EKG Measurement Heart [id number] <Conclusion> Sinus rhythm with premature supraventricular complexes Biatrial enlargement
[2017-01-17 14:07] LABS: BLOOD UREA NITROGEN 9 mg/dL (7-21); CALCIUM 9.4 mg/dL (8.4-10.5); CARBON DIOXIDE 28 mmol/L (21-33); CHLORIDE 89 mmol/L (98-107); GFR AFRICAN-AMERICAN > 60; GLUCOSE,RANDOM 96 mg/dL (70-110); POTASSIUM 3.8 mmol/L (3.6-5.0); SODIUM 127 mmol/L (132-148)
[2017-01-17] MEDS ORDERED: Pneumococcal 23-Valent Vaccine IM ONE (14:22)
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
[2017-01-17 17:10] LABS: BLOOD UREA NITROGEN 10 mg/dL (7-21); CALCIUM 9.6 mg/dL (8.4-10.5); CARBON DIOXIDE 30 mmol/L (21-33); CHLORIDE 91 mmol/L (98-107); GFR AFRICAN-AMERICAN > 60; GLUCOSE,RANDOM 88 mg/dL (70-110); POTASSIUM 3.9 mmol/L (3.6-5.0); SODIUM 128 mmol/L (132-148)
[2017-01-17 21:54] LABS: BLOOD UREA NITROGEN 11 mg/dL (7-21); CALCIUM 9.1 mg/dL (8.4-10.5); CARBON DIOXIDE 28 mmol/L (21-33); CHLORIDE 91 mmol/L (98-107); GFR AFRICAN-AMERICAN > 60; GLUCOSE,RANDOM 193 mg/dL (70-110); POTASSIUM 3.4 mmol/L (3.6-5.0); SODIUM 126 mmol/L (132-148)
[2017-01-18 01:30] LABS: BLOOD UREA NITROGEN 10 mg/dL (7-21); CALCIUM 8.7 mg/dL (8.4-10.5); CARBON DIOXIDE 27 mmol/L (21-33); CHLORIDE 87 mmol/L (98-107); GFR AFRICAN-AMERICAN > 60; GLUCOSE,RANDOM 73 mg/dL (70-110); POTASSIUM 3.6 mmol/L (3.6-5.0); SODIUM 120 mmol/L (132-148)
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
[2017-01-18] MEDS ORDERED: Sodium Chloride 3% 500 ML IV SCH ×2 (05:45→13:45)
[2017-01-18 07:07] LABS: ALKALINE PHOSPHATASE 119 U/L (38-126); ALT/SGPT 38 U/L (7-56); AST/SGOT 46 U/L (14-36); BILIRUBIN,TOTAL 0.6 mg/dL (0.2-1.3); BLOOD UREA NITROGEN 11 mg/dL (7-21); CALCIUM 8.9 mg/dL (8.4-10.5); CARBON DIOXIDE 28 mmol/L (21-33); CHLORIDE 87 mmol/L (98-107); GFR AFRICAN-AMERICAN > 60; GLUCOSE,RANDOM 104 mg/dL (70-110); MAGNESIUM 1.5 mg/dL (1.7-2.2); PHOSPHOROUS 3.2 mg/dL (2.5-4.5); POTASSIUM 3.6 mmol/L (3.6-5.0); SODIUM 123 mmol/L (132-148); TOTAL PROTEIN 6.9 g/dL (5.8-8.3)
[2017-01-18 07:18] LABS: BASO # 0.04 K/mm3 (0.0-2.0); BASO % 0.4 % (0.0-3.0); EOS # 0.1 (0.0-0.7); GRAN # 6.74 (1.4-6.5); GRAN % 65.2 % (50.0-68.0); HEMATOCRIT 33.2 % (36.0-48.0); LYMPH # 2.5 (1.2-3.4); LYMPH % 23.9 % (22.0-35.0); MEAN CELL VOLUME 89.7 fl (80.0-105.0); MEAN CORPUSCULAR HEMOGLOBIN 31.9 pg (25.0-35.0); MEAN CORPUSCULAR HGB CONC 35.5 g/dl (31.0-37.0); MEAN PLATELET VOLUME 10.4 fl (7.0-11.0); MONO % 9.5 % (1.0-6.0); RED CELL DISTRIBUTION WIDTH 12.6 % (11.5-14.5); WHITE BLOOD COUNT 10.3 10^3/ul (4.5-11.0)
[2017-01-18] MEDS ORDERED: Magnesium Sulfate 2 GM in Sodium Chloride 0.9% 100 ML IVPB ONE (07:41)
[2017-01-18 09:16] LABS: CHLORIDE URINE 15 mmol/L (32-290)
--- NOTE | 2017-01-18 09:44 | CT ---
PROCEDURE: CT HEAD WITHOUT CONTRAST. HISTORY: headaches, severe hyponatremia COMPARISON: None available. TECHNIQUE: Axial computed tomography images were obtained through the head/brain without intravenous contrast. Radiation dose: Total exam DLP = 775 mGy-cm. This CT exam was performed using one or more of the following dose reduction techniques: Automated exposure control, adjustment of the mA and/or kV according to patient size, and/or use of iterative reconstruction technique. FINDINGS: HEMORRHAGE: No intracranial hemorrhage. BRAIN: There is mild expansion of the ventricular sulcal sternal spaces compatible diffuse cerebral atrophy. Nevertheless, adequate differentiation of the cortico medullary parenchyma is appreciated throughout the cerebrum. No suspicious density abnormality is appreciated throughout the brainstem and cerebellum. There is no evidence suspicious extra-axial collection either. VENTRICLES: Unremarkable. No hydrocephalus. CALVARIUM: Unremarkable. PARANASAL SINUSES: Trace mucosal inflammatory changes seen involving bilateral ethmoid air cells. MASTOID AIR CELLS: Unremarkable as visualized. No inflammatory changes. OTHER FINDINGS: None. IMPRESSION: Limited diffuse cerebral atrophy is appreciated without intracranial hemorrhage, mass effect or parenchymal edema present. No suspicious extra-axial fluid collection.
--- NOTE | 2017-01-18 09:57 | CP.CCUPN ---
<Justine Harry - Last Filed: 01/18/17 10:31> CCU Subjective - Physician Review Events Since Last Encounter (Free Text): 01/18/17 09:53 No acute events overnight Subjective (Free Text): 01/18/17 09:53 Critical care progress note for Dr. Uribe-Justine Harry, PGY-1 Pt S & E at bedside. Pt without complaints overnight, now AOx4. Denies N/V/F/C, SOB, CP, ab pain, visual or auditory hallucinations. Critical Care Time Spent (in minutes): 35 CCU Objective - Vital Signs / Intake & Output Intake and Output (Last 8hrs): Intake & Output 01/17/17 01/18/17 01/18/17 22:59 06:59 14:59 Intake Total 3680 Output Total 750 Balance 2930 Intake: IV 3200 Right Forearm 3200 Oral 480 Output: Urine 750 Urine, Voided 750 Other: # Voids Urine, Voided 2 - Physical Exam Physical Exam Limitations: Negative for: Altered Mental Status Head: Positive for: Atraumatic, Normocephalic Pupils: Positive for: PERRL Extroacular Muscles: Positive for: EOMI Conjunctiva: Positive for: Normal Mouth: Positive for: Moist Mucous Membranes, Normal Lips, Normal Tounge. Negative for: Normal Teeth (poor dentition) Pharnyx: Positive for: Normal Nose (External): Positive for: Atraumatic Nose (Internal): Positive for: Normal Inspection Neck: Positive for: Normal Range of Motion Respiratory/Chest: Positive for: Clear to Auscultation, Good Air Exchange. Negative for: Respiratory Distress, Accessory Muscle Use, Rales, Rhonchi, Tachypneic Cardiovascular: Positive for: Regular Rate and Rhythm, Normal S1, S2. Negative for: Murmurs, Gallop Abdomen: Positive for: Normal Bowel Sounds. Negative for: Tenderness, Distention, Peritoneal Signs Upper Extremity: Positive for: Normal Inspection, Normal ROM. Negative for: Cyanosis, Edema Lower Extremity: Positive for: Normal Inspection, Normal ROM. Negative for: Edema Neurological: Positive for: GCS=15, CN II-XII Intact, Speech Normal (pressured speech), Motor Func Grossly Intact, Normal Sensory Function Skin: Positive for: Warm, Dry, Normal Color. Negative for: Rashes Psychiatric: Positive for: Alert, Oriented x 3, Normal Insight, Normal Concentration. Negative for: Delusional, Hallucinations - Medications Active Medications: Active Medications Generic Name Dose Route Start Last Admin Trade Name Agatha PRN Reason Stop Dose Admin Famotidine 20 mg 01/17/17 11:45 01/18/17 09:44 Pepcid IVP 20 mg DAILY HECTOR Administration Haloperidol Lactate 1 mg 01/17/17 10:58 01/17/17 21:51 Haldol IVP 1 mg Q3H PRN Administration Agitation Protocol - Patient Studies Lab Studies: Lab Studies 01/18/17 01/18/17 01/18/17 Range/Units 06:15 06:15 01:05 WBC 10.3 D (4.5-11.0) 10^3/ul RBC 3.70 (3.5-6.1) 10^6/uL Hgb 11.8 L (12.0-16.0) g/dL Hct 33.2 L (36.0-48.0) % MCV 89.7 (80.0-105.0) fl MCH 31.9 (25.0-35.0) pg MCHC 35.5 (31.0-37.0) g/dl RDW 12.6 (11.5-14.5) % Plt Count 243 (120.0-450.0) 10^3/uL MPV 10.4 (7.0-11.0) fl Gran % 65.2 (50.0-68.0) % Lymph % (Auto) 23.9 (22.0-35.0) % [place] % (Auto) 9.5 H (1.0-6.0) % Eos % (Auto) 1.0 L (1.5-5.0) % Baso % (Auto) 0.4 (0.0-3.0) % Gran # 6.74 H (1.4-6.5) Lymph # 2.5 (1.2-3.4) [place] # 1.0 H (0.1-0.6) Eos # 0.1 (0.0-0.7) Baso # 0.04 (0.0-2.0) K/mm3 Sodium 123 L 120 L (132-148) mmol/L Potassium 3.6 3.6 (3.6-5.0) mmol/L Chloride 87 L 87 L (98-107) mmol/L Carbon Dioxide 28 27 (21-33) mmol/L Anion Gap 12 10 (10-20) BUN 11 10 (7-21) mg/dL Creatinine 0.6 0.6 (0.5-1.4) mg/dL Est GFR ( Amer) > 60 > 60 Est GFR (Non-Af Amer) > 60 > 60 Random Glucose 104 73 (70-110) mg/dL Calcium 8.9 8.7 (8.4-10.5) mg/dL Phosphorus 3.2 (2.5-4.5) mg/dL Magnesium 1.5 L (1.7-2.2) mg/dL Total Bilirubin 0.6 (0.2-1.3) mg/dL AST 46 H (14-36) U/L ALT 38 (7-56) U/L Alkaline Phosphatase 119 (38-126) U/L Total Protein 6.9 (5.8-8.3) g/dL Albumin 3.4 (3.0-4.8) g/dL Globulin 3.5 gm/dL Albumin/Globulin Ratio 1.0 L (1.1-1.8) Urine Osmolality (50-645) mosm/kg Ur Random Sodium meq/L Urine Chloride (32-290) mmol/L Valproic Acid (50.0-100.0) ug/mL 01/17/17 01/17/17 01/17/17 Range/Units 21:30 20:48 16:55 WBC (4.5-11.0) 10^3/ul RBC (3.5-6.1) 10^6/uL Hgb (12.0-16.0) g/dL Hct (36.0-48.0) % MCV (80.0-105.0) fl MCH (25.0-35.0) pg MCHC (31.0-37.0) g/dl RDW (11.5-14.5) % Plt Count (120.0-450.0) 10^3/uL MPV (7.0-11.0) fl Gran % (50.0-68.0) % Lymph % (Auto) (22.0-35.0) % [place] % (Auto) (1.0-6.0) % Eos % (Auto) (1.5-5.0) % Baso % (Auto) (0.0-3.0) % Gran # (1.4-6.5) Lymph # (1.2-3.4) [place] # (0.1-0.6) Eos # (0.0-0.7) Baso # (0.0-2.0) K/mm3 Sodium 126 L 128 L (132-148) mmol/L Potassium 3.4 L 3.9 (3.6-5.0) mmol/L Chloride 91 L 91 L (98-107) mmol/L Carbon Dioxide 28 30 (21-33) mmol/L Anion Gap 10 11 (10-20) BUN 11 10 (7-21) mg/dL Creatinine 0.6 0.6 (0.5-1.4) mg/dL Est GFR ( Amer) > 60 > 60 Est GFR (Non-Af Amer) > 60 > 60 Random Glucose 193 H 88 (70-110) mg/dL Calcium 9.1 9.6 (8.4-10.5) mg/dL Phosphorus (2.5-4.5) mg/dL Magnesium (1.7-2.2) mg/dL Total Bilirubin (0.2-1.3) mg/dL AST (14-36) U/L ALT (7-56) U/L Alkaline Phosphatase (38-126) U/L Total Protein (5.8-8.3) g/dL Albumin (3.0-4.8) g/dL Globulin gm/dL Albumin/Globulin Ratio (1.1-1.8) Urine Osmolality 100 (50-645) mosm/kg Ur Random Sodium 19 meq/L Urine Chloride (32-290) mmol/L Valproic Acid (50.0-100.0) ug/mL 01/17/17 01/17/17 01/17/17 Range/Units 13:52 10:49 10:16 WBC (4.5-11.0) 10^3/ul RBC (3.5-6.1) 10^6/uL Hgb (12.0-16.0) g/dL Hct (36.0-48.0) % MCV (80.0-105.0) fl MCH (25.0-35.0) pg MCHC (31.0-37.0) g/dl RDW (11.5-14.5) % Plt Count (120.0-450.0) 10^3/uL MPV (7.0-11.0) fl Gran % (50.0-68.0) % Lymph % (Auto) (22.0-35.0) % [place] % (Auto) (1.0-6.0) % Eos % (Auto) (1.5-5.0) % Baso % (Auto) (0.0-3.0) % Gran # (1.4-6.5) Lymph # (1.2-3.4) [place] # (0.1-0.6) Eos # (0.0-0.7) Baso # (0.0-2.0) K/mm3 Sodium 127 L (132-148) mmol/L Potassium 3.8 (3.6-5.0) mmol/L Chloride 89 L (98-107) mmol/L Carbon Dioxide 28 (21-33) mmol/L Anion Gap 14 (10-20) BUN 9 (7-21) mg/dL Creatinine 0.5 (0.5-1.4) mg/dL Est GFR ( Amer) > 60 Est GFR (Non-Af Amer) > 60 Random Glucose 96 (70-110) mg/dL Calcium 9.4 (8.4-10.5) mg/dL Phosphorus (2.5-4.5) mg/dL Magnesium (1.7-2.2) mg/dL Total Bilirubin (0.2-1.3) mg/dL AST (14-36) U/L ALT (7-56) U/L Alkaline Phosphatase (38-126) U/L Total Protein (5.8-8.3) g/dL Albumin (3.0-4.8) g/dL Globulin gm/dL Albumin/Globulin Ratio (1.1-1.8) Urine Osmolality (50-645) mosm/kg Ur Random Sodium meq/L Urine Chloride 15 L (32-290) mmol/L Valproic Acid 57 (50.0-100.0) ug/mL Laboratory Results - last 24 hr 01/17/17 01/17/17 01/17/17 10:16 10:49 13:52 WBC RBC Hgb Hct MCV MCH MCHC RDW Plt Count MPV Gran % Lymph % (Auto) [place] % (Auto) Eos % (Auto) Baso % (Auto) Gran # Lymph # [place] # Eos # Baso # Sodium 127 L Potassium 3.8 Chloride 89 L Carbon Dioxide 28 Anion Gap 14 BUN 9 Creatinine 0.5 Est GFR ( Amer) > 60 Est GFR (Non-Af Amer) > 60 Random Glucose 96 Calcium 9.4 Phosphorus Magnesium Total Bilirubin AST ALT Alkaline Phosphatase Total Protein Albumin Globulin Albumin/Globulin Ratio Urine Osmolality Ur Random Sodium Urine Chloride 15 L Valproic Acid 57 01/17/17 01/17/17 01/17/17 16:55 20:48 21:30 WBC RBC Hgb Hct MCV MCH MCHC RDW Plt Count MPV Gran % Lymph % (Auto) [place] % (Auto) Eos % (Auto) Baso % (Auto) Gran # Lymph # [place] # Eos # Baso # Sodium 128 L 126 L Potassium 3.9 3.4 L Chloride 91 L 91 L Carbon Dioxide 30 28 Anion Gap 11 10 BUN 10 11 Creatinine 0.6 0.6 Est GFR ( Amer) > 60 > 60 Est GFR (Non-Af Amer) > 60 > 60 Random Glucose 88 193 H Calcium 9.6 9.1 Phosphorus Magnesium Total Bilirubin AST ALT Alkaline Phosphatase Total Protein Albumin Globulin Albumin/Globulin Ratio Urine Osmolality 100 Ur Random Sodium 19 Urine Chloride Valproic Acid 01/18/17 01/18/17 01/18/17 01:05 06:15 06:15 WBC 10.3 D RBC 3.70 Hgb 11.8 L Hct 33.2 L MCV 89.7 MCH 31.9 MCHC 35.5 RDW 12.6 Plt Count 243 MPV 10.4 Gran % 65.2 Lymph % (Auto) 23.9 [place] % (Auto) 9.5 H Eos % (Auto) 1.0 L Baso % (Auto) 0.4 Gran # 6.74 H Lymph # 2.5 [place] # 1.0 H Eos # 0.1 Baso # 0.04 Sodium 120 L 123 L Potassium 3.6 3.6 Chloride 87 L 87 L Carbon Dioxide 27 28 Anion Gap 10 12 BUN 10 11 Creatinine 0.6 0.6 Est GFR ( Amer) > 60 > 60 Est GFR (Non-Af Amer) > 60 > 60 Random Glucose 73 104 Calcium 8.7 8.9 Phosphorus 3.2 Magnesium 1.5 L Total Bilirubin 0.6 AST 46 H ALT 38 Alkaline Phosphatase 119 Total Protein 6.9 Albumin 3.4 Globulin 3.5 Albumin/Globulin Ratio 1.0 L Urine Osmolality Ur Random Sodium Urine Chloride Valproic Acid Review of Systems - Review of Systems All systems: reviewed and no additional remarkable complaints except - Constitutional Constitutional: absent: Fever, Chills Critical Care Progress Note - Nutrition Nutrition: Nutrition Category Date Time Status Heart Healthy Diet [DIET] Diets 01/18/17 Breakfast Ordered Assessment/Plan - Assessment and Plan (Free Text) Assessment: 56F w/PMH sig for bipolar d/o admitted to ICU for severe hyponatremia w/AMS- AMS resolved, hyponatremia improving- stable for transfer to med-surg. Plan: Neuro AOx3 hx Bipolar d/o Psych consulted [facility] Normotensive Some mild hypotensive episodes Monitor Pulm Stable on RA Target SaO2>94% Monitor Nephro Hyponatremia-improving Na now 123 from original 116 Fluid restriction Given DDAVP overnight was on Hypertonic saline yesterday Hypomagnesemia Mg 1.5 Replaced Hypochloridemia 87 Strict I/O's Monitor UDS neg Nephro following- urine studies sent/pending GI HHD ID Afebrile Leukocytosis resolved 10.3 from 15 Monitor Psych hx bipolar Haldol PRN agitation 1:1 sitter Tobacco abuse Nicotine patch Psych consulted [facility] PT/TO GI/DVT ppx Pepcid SCDs Dispo Stable Transfer to med-surg Further mgmt as per primary and psych team DW attending Kamryn, PGY-1 - Date & Time Date: 01/18/17 Time: 09:35 <Fidel Uribe - Last Filed: 01/18/17 14:21> CCU Objective - Vital Signs / Intake & Output Vital Signs (Last 4 hours): Vital Signs Pulse Resp BP Pulse Ox 01/18/17 12:40 76 25 H 100 01/18/17 12:30 83 23 98 01/18/17 12:20 79 21 99 01/18/17 12:12 79 22 01/18/17 12:11 81 36 H 01/18/17 12:10 77 29 H 83 L 01/18/17 12:01 70 139/70 87 L 01/18/17 12:00 82 78 L 01/18/17 11:50 68 20 94 L 01/18/17 11:40 69 34 H 98 01/18/17 11:30 71 45 H 99 01/18/17 11:20 75 50 H 97 01/18/17 11:10 79 68 H 93 L 01/18/17 11:00 71 20 123/64 99 01/18/17 10:53 72 34 H 138/68 98 Intake and Output (Last 8hrs): Intake & Output 01/17/17 01/18/17 01/18/17 22:59 06:59 14:59 Intake Total 3680 Output Total 750 Balance 2930 Intake: IV 3200 Right Forearm 3200 Oral 480 Output: Urine 750 Urine, Voided 750 Other: # Voids Urine, Voided 2 - Medications Active Medications: Active Medications Generic Name Dose Route Start Last Admin Trade Name Freq PRN Reason Stop Dose Admin Famotidine 20 mg 01/17/17 11:45 01/18/17 09:44 Pepcid IVP 20 mg DAILY HECTOR Administration Haloperidol Lactate 1 mg 01/17/17 10:58 01/17/17 21:51 Haldol IVP 1 mg Q3H PRN Administration Agitation Protocol Sodium Chloride 500 mls @ 20 mls/hr 01/18/17 13:45 01/18/17 14:00 Hypertonic Saline 3% IV 01/18/17 16:46 20 mls/hr .Q24H HECTOR Administration - Patient Studies Lab Studies: Lab Studies 01/18/17 01/18/17 01/18/17 Range/Units 12:10 12:10 11:50 WBC (4.5-11.0) 10^3/ul RBC (3.5-6.1) 10^6/uL Hgb (12.0-16.0) g/dL Hct (36.0-48.0) % MCV (80.0-105.0) fl MCH (25.0-35.0) pg MCHC (31.0-37.0) g/dl RDW (11.5-14.5) % Plt Count (120.0-450.0) 10^3/uL MPV (7.0-11.0) fl Gran % (50.0-68.0) % Lymph % (Auto) (22.0-35.0) % [place] % (Auto) (1.0-6.0) % Eos % (Auto) (1.5-5.0) % Baso % (Auto) (0.0-3.0) % Gran # (1.4-6.5) Lymph # (1.2-3.4) [place] # (0.1-0.6) Eos # (0.0-0.7) Baso # (0.0-2.0) K/mm3 Sodium 122 L (132-148) mmol/L Potassium 4.1 (3.6-5.0) mmol/L Chloride 89 L (98-107) mmol/L Carbon Dioxide 26 (21-33) mmol/L Anion Gap 11 (10-20) BUN 12 (7-21) mg/dL Creatinine 0.6 (0.5-1.4) mg/dL Est GFR ( Amer) > 60 Est GFR (Non-Af Amer) > 60 Random Glucose 92 (70-110) mg/dL Calcium 8.7 (8.4-10.5) mg/dL Phosphorus (2.5-4.5) mg/dL Magnesium (1.7-2.2) mg/dL Total Bilirubin (0.2-1.3) mg/dL AST (14-36) U/L ALT (7-56) U/L Alkaline Phosphatase (38-126) U/L Total Protein (5.8-8.3) g/dL Albumin (3.0-4.8) g/dL Globulin gm/dL Albumin/Globulin Ratio (1.1-1.8) Urine Osmolality 391 (50-645) mosm/kg Ur Random Sodium 67 meq/L Urine Chloride (32-290) mmol/L 01/18/17 01/18/17 01/18/17 Range/Units 06:15 06:15 01:05 WBC 10.3 D (4.5-11.0) 10^3/ul RBC 3.70 (3.5-6.1) 10^6/uL Hgb 11.8 L (12.0-16.0) g/dL Hct 33.2 L (36.0-48.0) % MCV 89.7 (80.0-105.0) fl MCH 31.9 (25.0-35.0) pg MCHC 35.5 (31.0-37.0) g/dl RDW 12.6 (11.5-14.5) % Plt Count 243 (120.0-450.0) 10^3/uL MPV 10.4 (7.0-11.0) fl Gran % 65.2 (50.0-68.0) % Lymph % (Auto) 23.9 (22.0-35.0) % [place] % (Auto) 9.5 H (1.0-6.0) % Eos % (Auto) 1.0 L (1.5-5.0) % Baso % (Auto) 0.4 (0.0-3.0) % Gran # 6.74 H (1.4-6.5) Lymph # 2.5 (1.2-3.4) [place] # 1.0 H (0.1-0.6) Eos # 0.1 (0.0-0.7) Baso # 0.04 (0.0-2.0) K/mm3 Sodium 123 L 120 L (132-148) mmol/L Potassium 3.6 3.6 (3.6-5.0) mmol/L Chloride 87 L 87 L (98-107) mmol/L Carbon Dioxide 28 27 (21-33) mmol/L Anion Gap 12 10 (10-20) BUN 11 10 (7-21) mg/dL Creatinine 0.6 0.6 (0.5-1.4) mg/dL Est GFR ( Amer) > 60 > 60 Est GFR (Non-Af Amer) > 60 > 60 Random Glucose 104 73 (70-110) mg/dL Calcium 8.9 8.7 (8.4-10.5) mg/dL Phosphorus 3.2 (2.5-4.5) mg/dL Magnesium 1.5 L (1.7-2.2) mg/dL Total Bilirubin 0.6 (0.2-1.3) mg/dL AST 46 H (14-36) U/L ALT 38 (7-56) U/L Alkaline Phosphatase 119 (38-126) U/L Total Protein 6.9 (5.8-8.3) g/dL Albumin 3.4 (3.0-4.8) g/dL Globulin 3.5 gm/dL Albumin/Globulin Ratio 1.0 L (1.1-1.8) Urine Osmolality (50-645) mosm/kg Ur Random Sodium meq/L Urine Chloride (32-290) mmol/L 01/17/17 01/17/17 01/17/17 Range/Units 21:30 20:48 16:55 WBC (4.5-11.0) 10^3/ul RBC (3.5-6.1) 10^6/uL Hgb (12.0-16.0) g/dL Hct (36.0-48.0) % MCV (80.0-105.0) fl MCH (25.0-35.0) pg MCHC (31.0-37.0) g/dl RDW (11.5-14.5) % Plt Count (120.0-450.0) 10^3/uL MPV (7.0-11.0) fl Gran % (50.0-68.0) % Lymph % (Auto) (22.0-35.0) % [place] % (Auto) (1.0-6.0) % Eos % (Auto) (1.5-5.0) % Baso % (Auto) (0.0-3.0) % Gran # (1.4-6.5) Lymph # (1.2-3.4) [place] # (0.1-0.6) Eos # (0.0-0.7) Baso # (0.0-2.0) K/mm3 Sodium 126 L 128 L (132-148) mmol/L Potassium 3.4 L 3.9 (3.6-5.0) mmol/L Chloride 91 L 91 L (98-107) mmol/L Carbon Dioxide 28 30 (21-33) mmol/L Anion Gap 10 11 (10-20) BUN 11 10 (7-21) mg/dL Creatinine 0.6 0.6 (0.5-1.4) mg/dL Est GFR ( Amer) > 60 > 60 Est GFR (Non-Af Amer) > 60 > 60 Random Glucose 193 H 88 (70-110) mg/dL Calcium 9.1 9.6 (8.4-10.5) mg/dL Phosphorus (2.5-4.5) mg/dL Magnesium (1.7-2.2) mg/dL Total Bilirubin (0.2-1.3) mg/dL AST (14-36) U/L ALT (7-56) U/L Alkaline Phosphatase (38-126) U/L Total Protein (5.8-8.3) g/dL Albumin (3.0-4.8) g/dL Globulin gm/dL Albumin/Globulin Ratio (1.1-1.8) Urine Osmolality 100 (50-645) mosm/kg Ur Random Sodium 19 meq/L Urine Chloride (32-290) mmol/L 01/17/17 Range/Units 10:49 WBC (4.5-11.0) 10^3/ul RBC (3.5-6.1) 10^6/uL Hgb (12.0-16.0) g/dL Hct (36.0-48.0) % MCV (80.0-105.0) fl MCH (25.0-35.0) pg MCHC (31.0-37.0) g/dl RDW (11.5-14.5) % Plt Count (120.0-450.0) 10^3/uL MPV (7.0-11.0) fl Gran % (50.0-68.0) % Lymph % (Auto) (22.0-35.0) % [place] % (Auto) (1.0-6.0) % Eos % (Auto) (1.5-5.0) % Baso % (Auto) (0.0-3.0) % Gran # (1.4-6.5) Lymph # (1.2-3.4) [place] # (0.1-0.6) Eos # (0.0-0.7) Baso # (0.0-2.0) K/mm3 Sodium (132-148) mmol/L Potassium (3.6-5.0) mmol/L Chloride (98-107) mmol/L Carbon Dioxide (21-33) mmol/L Anion Gap (10-20) BUN (7-21) mg/dL Creatinine (0.5-1.4) mg/dL Est GFR ( Amer) Est GFR (Non-Af Amer) Random Glucose (70-110) mg/dL Calcium (8.4-10.5) mg/dL Phosphorus (2.5-4.5) mg/dL Magnesium (1.7-2.2) mg/dL Total Bilirubin (0.2-1.3) mg/dL AST (14-36) U/L ALT (7-56) U/L Alkaline Phosphatase (38-126) U/L Total Protein (5.8-8.3) g/dL Albumin (3.0-4.8) g/dL Globulin gm/dL Albumin/Globulin Ratio (1.1-1.8) Urine Osmolality (50-645) mosm/kg Ur Random Sodium meq/L Urine Chloride 15 L (32-290) mmol/L Laboratory Results - last 24 hr 01/17/17 01/17/17 01/17/17 10:49 16:55 20:48 WBC RBC Hgb Hct MCV MCH MCHC RDW Plt Count MPV Gran % Lymph % (Auto) [place] % (Auto) Eos % (Auto) Baso % (Auto) Gran # Lymph # [place] # Eos # Baso # Sodium 128 L Potassium 3.9 Chloride 91 L Carbon Dioxide 30 Anion Gap 11 BUN 10 Creatinine 0.6 Est GFR ( Amer) > 60 Est GFR (Non-Af Amer) > 60 Random Glucose 88 Calcium 9.6 Phosphorus Magnesium Total Bilirubin AST ALT Alkaline Phosphatase Total Protein Albumin Globulin Albumin/Globulin Ratio Urine Osmolality 100 Ur Random Sodium 19 Urine Chloride 15 L 01/17/17 01/18/17 01/18/17 21:30 01:05 06:15 WBC 10.3 D RBC 3.70 Hgb 11.8 L Hct 33.2 L MCV 89.7 MCH 31.9 MCHC 35.5 RDW 12.6 Plt Count 243 MPV 10.4 Gran % 65.2 Lymph % (Auto) 23.9 [place] % (Auto) 9.5 H Eos % (Auto) 1.0 L Baso % (Auto) 0.4 Gran # 6.74 H Lymph # 2.5 [place] # 1.0 H Eos # 0.1 Baso # 0.04 Sodium 126 L 120 L Potassium 3.4 L 3.6 Chloride 91 L 87 L Carbon Dioxide 28 27 Anion Gap 10 10 BUN 11 10 Creatinine 0.6 0.6 Est GFR ( Amer) > 60 > 60 Est GFR (Non-Af Amer) > 60 > 60 Random Glucose 193 H 73 Calcium 9.1 8.7 Phosphorus Magnesium Total Bilirubin AST ALT Alkaline Phosphatase Total Protein Albumin Globulin Albumin/Globulin Ratio Urine Osmolality Ur Random Sodium Urine Chloride 01/18/17 01/18/17 01/18/17 06:15 11:50 12:10 WBC RBC Hgb Hct MCV MCH MCHC RDW Plt Count MPV Gran % Lymph % (Auto) [place] % (Auto) Eos % (Auto) Baso % (Auto) Gran # Lymph # [place] # Eos # Baso # Sodium 123 L 122 L Potassium 3.6 4.1 Chloride 87 L 89 L Carbon Dioxide 28 26 Anion Gap 12 11 BUN 11 12 Creatinine 0.6 0.6 Est GFR ( Amer) > 60 > 60 Est GFR (Non-Af Amer) > 60 > 60 Random Glucose 104 92 Calcium 8.9 8.7 Phosphorus 3.2 Magnesium 1.5 L Total Bilirubin 0.6 AST 46 H ALT 38 Alkaline Phosphatase 119 Total Protein 6.9 Albumin 3.4 Globulin 3.5 Albumin/Globulin Ratio 1.0 L Urine Osmolality 391 Ur Random Sodium Urine Chloride 01/18/17 12:10 WBC RBC Hgb Hct MCV MCH MCHC RDW Plt Count MPV Gran % Lymph % (Auto) [place] % (Auto) Eos % (Auto) Baso % (Auto) Gran # Lymph # [place] # Eos # Baso # Sodium Potassium Chloride Carbon Dioxide Anion Gap BUN Creatinine Est GFR ( Amer) Est GFR (Non-Af Amer) Random Glucose Calcium Phosphorus Magnesium Total Bilirubin AST ALT Alkaline Phosphatase Total Protein Albumin Globulin Albumin/Globulin Ratio Urine Osmolality Ur Random Sodium 67 Urine Chloride Critical Care Progress Note - Nutrition Nutrition: Nutrition Category Date Time Status Heart Healthy Diet [DIET] Diets 01/18/17 Breakfast Ordered Attending/Attestation - Attestation I have personally seen and examined this patient.: Yes I have fully participated in the care of the patient.: Yes I have reviewed all pertinent clinical information: Yes Notes (Text): 01/18/17 14:10 56 yo was admitted to icu yesterday with severe hyponatriemia and AMS, now resolved. a & o x 3, hemodynamically and respiratory hernandez stable. ok to downgrade to [facility] ccm time 40 min
[2017-01-18 12:29] LABS: BLOOD UREA NITROGEN 12 mg/dL (7-21); CALCIUM 8.7 mg/dL (8.4-10.5); CARBON DIOXIDE 26 mmol/L (21-33); CHLORIDE 89 mmol/L (98-107); GFR AFRICAN-AMERICAN > 60; GLUCOSE,RANDOM 92 mg/dL (70-110); POTASSIUM 4.1 mmol/L (3.6-5.0); SODIUM 122 mmol/L (132-148)
--- NOTE | 2017-01-18 13:27 | CP.PCM.PN ---
<Lucas Torres - Last Filed: 01/18/17 13:28> Subjective - Date & Time of Evaluation Date of Evaluation: 01/18/17 Time of Evaluation: 06:24 - Subjective Subjective: Patient was seen and examined at bedside. The patient continues to exhibit bizarre behavior with random outbursts of laughter. The patient reports feeling better and ready to leave the ICU. The patient denies any chest pain, shortness of breath, nausea, vomiting, chest pain, constipation, diarrhea, or any other complaints. Objective - Vital Signs/Intake and Output Vital Signs (last 24 hours): Temp Pulse Resp BP Pulse Ox 98.1 F 76 25 H 139/70 100 01/18/17 04:00 01/18/17 12:40 01/18/17 12:40 01/18/17 12:01 01/18/17 12:40 Intake and Output: 01/18/17 01/18/17 06:59 18:59 Intake Total 3680 Output Total 750 Balance 2930 - Medications Medications: Current Medications Famotidine (Pepcid) 20 mg IVP DAILY HECTOR Last Admin: 01/18/17 09:44 Dose: 20 mg Haloperidol Lactate (Haldol) 1 mg IVP Q3H PRN; Protocol PRN Reason: Agitation Last Admin: 01/17/17 21:51 Dose: 1 mg - Labs Labs: 01/18/17 06:15 01/18/17 11:50 - Head Exam Head Exam: ATRAUMATIC, NORMAL INSPECTION, NORMOCEPHALIC - Eye Exam Eye Exam: EOMI, Normal appearance, PERRL. absent: Periorbital tenderness Pupil Exam: NORMAL ACCOMODATION, PERRL. absent: Irregular - ENT Exam ENT Exam: Mucous Membranes Moist - Neck Exam Neck Exam: Full ROM, Normal Inspection - Respiratory Exam Respiratory Exam: Clear to Ausculation Bilateral, NORMAL BREATHING PATTERN. absent: Accessory Muscle Use, Chest Wall Tenderness, Respiratory Distress - Cardiovascular Exam Cardiovascular Exam: REGULAR RHYTHM, RRR, +S1, +S2. absent: Gallop, Rubs - GI/Abdominal Exam GI & Abdominal Exam: Soft, Normal Bowel Sounds - Extremities Exam Extremities Exam: Full ROM - Back Exam Back Exam: NORMAL INSPECTION. absent: paraspinal tenderness - Neurological Exam Neurological Exam: Alert, Altered - Psychiatric Exam Psychiatric exam: Normal Affect, Normal Mood - Skin Skin Exam: Dry, Intact Assessment and Plan - Assessment and Plan (Free Text) Assessment: 56 year old female for psych eval. Mildly agitated with pressured speech. 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 Patient reports drinking over 2 Liters of Water before coming to E.D. -Patient given Hypertonic Salin @50ml/hr in E.D.. Fluids D/C'ed - Patient initially 116 upon admission. Now patient is 127. -Will continue to monitor Na level with serial cmp's. Should not exceed 8mmol in 24 hours. Altered mental status -After being medically stabilized patient should be transferred to involuntary psychiatric unit. -Patient has a history of non-compliance with meds per Sister. -Psych consult ordered. Will f/u rec's. Leukocytosis -U/A showed some blood present and small leukocyte esterase. -Patient currently asymptomatic -Urine Cx pending. -MRSA screen ordered. -Patient remains afebrile. Will monitor with serial CBC'S. GI ppx -Protonix DVT ppx -SCD's <Joe LANGSTON,Chante - Last Filed: 01/22/17 16:29> Objective - Vital Signs/Intake and Output Vital Signs (last 24 hours): Temp Pulse Resp BP Pulse Ox 97.7 F 68 19 117/66 98 01/21/17 06:00 01/21/17 06:00 01/21/17 06:00 01/21/17 06:00 01/21/17 06:00 - Labs Labs: 01/21/17 06:00 01/21/17 06:00 Attending/Attestation - Attestation I have personally seen and examined this patient.: Yes I have fully participated in the care of the patient.: Yes I have reviewed all pertinent clinical information, including history, physical exam and plan: Yes Notes (Text): 01/22/17 16:28 Patient was seen and examined with medical billing representative. Agreed with resident assessment and plan. Patient is alert, awake and oriented.CT head is negative.Patient hyponatremia is improving.Case was discussed with Nephrology. We will monitor Neuro check. Patient is on Seizure precaution. Management plan was discussed in detail with patient Education was provided.
[2017-01-18 19:04] LABS: BLOOD UREA NITROGEN 13 mg/dL (7-21); CALCIUM 8.6 mg/dL (8.4-10.5); CARBON DIOXIDE 30 mmol/L (21-33); CHLORIDE 86 mmol/L (98-107); GFR AFRICAN-AMERICAN > 60; GLUCOSE,RANDOM 111 mg/dL (70-110); POTASSIUM 4.4 mmol/L (3.6-5.0); SODIUM 121 mmol/L (132-148)
--- NOTE | 2017-01-18 20:56 | CP.PCM.PN ---
Subjective - Date & Time of Evaluation Date of Evaluation: 01/18/17 Time of Evaluation: 18:00 - Subjective Subjective: Patient tolerating diet well; Objective - Vital Signs/Intake and Output Vital Signs (last 24 hours): Temp Pulse Resp BP Pulse Ox 98 F 74 20 136/81 100 01/18/17 16:00 01/18/17 16:00 01/18/17 16:00 01/18/17 16:00 01/18/17 16:00 Intake and Output: 01/18/17 01/19/17 18:59 06:59 Intake Total 690 Output Total 650 Balance 40 - Medications Medications: Current Medications Famotidine (Pepcid) 20 mg IVP DAILY [facility] Last Admin: 01/18/17 09:44 Dose: 20 mg Risperidone (Risperdal Tab) 1 mg PO TID [facility] PRN Reason: Protocol Last Admin: 01/18/17 18:44 Dose: 1 mg Sodium Chloride (Sodium Chloride Tab) 2 gm PO Q8H [facility] Zolpidem Tartrate (Ambien) 5 mg PO HS PRN; Protocol PRN Reason: Insomnia - Labs Labs: 01/18/17 06:15 01/18/17 18:52 - Constitutional Appears: Well, No Acute Distress - Head Exam Head Exam: NORMAL INSPECTION - Eye Exam Eye Exam: Normal appearance - ENT Exam ENT Exam: Mucous Membranes Moist - Respiratory Exam Respiratory Exam: Clear to Ausculation Bilateral. absent: Rales, Rhonchi, Wheezes - Cardiovascular Exam Cardiovascular Exam: RRR, +S1, +S2 - GI/Abdominal Exam GI & Abdominal Exam: Soft. absent: Distended, Tenderness - Extremities Exam Extremities Exam: Normal Inspection - Neurological Exam Neurological Exam: Alert, Awake - Psychiatric Exam Psychiatric exam: Normal Mood - Skin Skin Exam: Normal Color, Warm. absent: Cyanosis Assessment and Plan (1) Hyponatremia Assessment & Plan: Likely due to polydypsia along with some degree of volume depletion (reflected by low Ur Cl); improved; serum sodium needed to be urgently re-lowered last night after rapid rise; has since remained in low 120's likley due to residual effect of desmopressin given yesterday (reflected by Ur osm elevated into 300's) ; -starting salt tabs 2g q8h -repeating urine osm, if dropping back to ~100, hyponatremia should correct spontaneously; Status: Acute (2) HTN (hypertension) Assessment & Plan: On amlodipine 5 mg at home; continue to hold for now; Status: Chronic (3) Headache Assessment & Plan: head CT not showing any concerning lesions; avoid NSAIDS for now as this can potentiate effect of ADH; Status: Acute (4) Bipolar disorder Assessment & Plan: Not on any meds that are well known for causing hyponatremia; continue per psych recs; Status: Chronic
[2017-01-19] MEDS ORDERED: Dextrose 5%/0.9% NS 1,000 ML IV SCH (01:45)
--- NOTE | 2017-01-19 02:56 | CON ---
DATE: HISTORY OF PRESENT ILLNESS: The patient is a 56-year-old female with history of bipolar disorder, recent hospitalization to [facility] for disorganized behavior and exacerbation of erik. The patient was discharged from the psychiatric inpatient unit on 01/16/2017. The patient came back to the hospital with change in mental status with presentation of agitation, aggressive behavior. The patient was found to have low sodium level of 116 as well as leukocytosis. The patient was admitted into CCU, psych consult was called for evaluation of medication. The patient was discontinued on Depakote, agree with that because it could give hyponatremia and SIADH. The patient also is on IV Haldol. This consumer loan underwriter will not recommend that because the patient could have cardiac complication for that. The patient will be resumed on Risperdal. The patient was taking 3 mg a day for years. Also this consumer loan underwriter would like to emphasize that the patient was on Depakote for more than 10 years prior this admission. PHYSICAL EXAMINATION VITAL SIGNS: Stable. Temperature 98.1, blood pressure is 157/72, respirations 17 and oxygen saturation 97. MEDICATIONS: Reviewed. Pepcid, sodium chloride, Risperdal will be resumed 1 mg 3 times a day. LABORATORY DATA: Reviewed. Sodium 120 today. Toxicology negative for any substances. Valproic acid is 57. MENTAL STATUS EXAMINATION: The patient is alert, oriented and pleasant. Child like demeanor, recognizes consumer loan underwriter. Intermittent eye contact. Mood described "I feel fine." Affect was reactive. Mood in congruent. Thought process was coherent and goal directed. Thought content; the patient denied visual, auditory or tactile hallucinations, but the patient was having repetitive statement such as I did not need to go to psych unit, I was not suicidal. The patient repeat that for 4-5 times. IMPRESSION: The patient has history of bipolar disorder; at present moment, the patient seems to be in delirium stage, was improving and it could be related to electrolyte imbalance. PLAN: Depakote was discontinued agree with that, Risperdal will be resumed 1 mg 3 times a day. The patient also will be on Ambien as needed for insomnia. The patient's Haldol IV push was discontinued. We will follow up and advise accordingly. The patient does not require one-to-one sitter next to her. Thank you very much for letting me to participate in the care of your patient. Should they have any questions give me a call back. Kristin Lundy MD
[2017-01-19 07:29] LABS: BASO # 0.03 K/mm3 (0.0-2.0); BASO % 0.4 % (0.0-3.0); EOS # 0.1 (0.0-0.7); EOS % 1.3 % (1.5-5.0); GRAN # 4.58 (1.4-6.5); GRAN % 58.4 % (50.0-68.0); HEMATOCRIT 33.4 % (36.0-48.0); LYMPH # 2.2 (1.2-3.4); LYMPH % 27.7 % (22.0-35.0); MEAN CELL VOLUME 90.8 fl (80.0-105.0); MEAN CORPUSCULAR HEMOGLOBIN 32.1 pg (25.0-35.0); MEAN CORPUSCULAR HGB CONC 35.3 g/dl (31.0-37.0); MEAN PLATELET VOLUME 10.3 fl (7.0-11.0); MONO % 12.2 % (1.0-6.0); RED CELL DISTRIBUTION WIDTH 12.6 % (11.5-14.5); WHITE BLOOD COUNT 7.8 10^3/ul (4.5-11.0)
[2017-01-19 07:48] LABS: ALB/GLOB RATIO 0.9 (1.1-1.8); ALKALINE PHOSPHATASE 109 U/L (38-126); ALT/SGPT 32 U/L (7-56); AST/SGOT 39 U/L (14-36); BILIRUBIN,TOTAL 0.5 mg/dL (0.2-1.3); BLOOD UREA NITROGEN 13 mg/dL (7-21); CALCIUM 8.8 mg/dL (8.4-10.5); CARBON DIOXIDE 25 mmol/L (21-33); CHLORIDE 97 mmol/L (98-107); GFR AFRICAN-AMERICAN > 60; GLUCOSE,RANDOM 89 mg/dL (70-110); MAGNESIUM 1.7 mg/dL (1.7-2.2); PHOSPHOROUS 3.5 mg/dL (2.5-4.5); SODIUM 130 mmol/L (132-148); TOTAL PROTEIN 6.9 g/dL (5.8-8.3)
--- NOTE | 2017-01-19 08:53 | CP.PCM.PN ---
Subjective - Date & Time of Evaluation Date of Evaluation: 01/19/17 Time of Evaluation: 08:49 - Subjective Subjective: PGY-[address] Forbes's Nephrology service Pt seen and examined at bedside. Pt found oriented to person, and place but not time or context. She repeatedly asks for nicotine patch placement. Pt reports tolerating diet, and following water restriction goal. She denies abdominal pain , nausea/vomiting, dysuria, chest pain, or palpitations. Objective - Vital Signs/Intake and Output Vital Signs (last 24 hours): Temp Pulse Resp BP Pulse Ox 98.4 F 70 20 145/80 97 01/19/17 07:56 01/19/17 07:56 01/19/17 07:56 01/19/17 07:56 01/19/17 07:56 Intake and Output: 01/19/17 01/19/17 06:59 18:59 Intake Total 1920 Balance 1920 - Medications Medications: Current Medications Famotidine (Pepcid) 20 mg PO DAILY [facility] Dextrose/Sodium Chloride (Dextrose 5%/0.9% Ns 1000 Ml) 1,000 mls @ 100 mls/hr IV .Q10H [facility] Last Admin: 01/19/17 02:51 Dose: 100 mls/hr Risperidone (Risperdal Tab) 1 mg PO TID [facility] PRN Reason: Protocol Last Admin: 01/18/17 18:44 Dose: 1 mg Sodium Chloride (Sodium Chloride Tab) 2 gm PO Q8H [facility] Last Admin: 01/19/17 05:32 Dose: 2 gm Zolpidem Tartrate (Ambien) 5 mg PO HS PRN; Protocol PRN Reason: Insomnia Last Admin: 01/18/17 21:14 Dose: 5 mg - Labs Labs: 01/19/17 06:40 01/19/17 06:40 - Constitutional Appears: Non-toxic, No Acute Distress - Head Exam Head Exam: ATRAUMATIC, NORMOCEPHALIC - Eye Exam Eye Exam: EOMI, Normal appearance - ENT Exam ENT Exam: Mucous Membranes Moist - Neck Exam Additional comments: large body habitus noted - Respiratory Exam Respiratory Exam: Clear to Ausculation Bilateral, NORMAL BREATHING PATTERN. absent: Rhonchi, Wheezes - Cardiovascular Exam Cardiovascular Exam: REGULAR RHYTHM, +S1, +S2 - GI/Abdominal Exam GI & Abdominal Exam: Soft, Normal Bowel Sounds. absent: Tenderness - Extremities Exam Extremities Exam: Normal Capillary Refill, Normal Inspection - Back Exam Back Exam: absent: CVA tenderness (L), CVA tenderness (R) - Neurological Exam Neurological Exam: Alert, Awake. absent: Oriented x3 - Psychiatric Exam Psychiatric exam: Normal Affect, Normal Mood - Skin Skin Exam: Dry, Intact Assessment and Plan - Assessment and Plan (Free Text) Plan: (1) Hyponatremia Assessment & Plan: -Likely due to polydypsia along with some degree of volume depletion -reflected by low Ur Cl - serum sodium corrected from 121 to 130 overnight; -D5W 500cc/hr x 2hr -Desmopressin 2mcg SC ONCE -hold salt tabs -Monitor on AM labs Status: Acute (2) HTN (hypertension) Assessment & Plan: BP well-controlled On amlodipine 5 mg at home; continue to hold for now; Status: Chronic (3) Headache Assessment & Plan: head CT not showing any concerning lesions; avoid NSAIDS for now as this can potentiate effect of ADH; Status: Acute (4) Bipolar disorder Assessment & Plan: Not on any meds that are well known for causing hyponatremia; continue per psych recs; Status: Chronic
[2017-01-19] MEDS ORDERED: Desmopressin 4 mcg/ml Inj (10 ml) SC ONE (10:01)
--- NOTE | 2017-01-19 12:42 | CP.PCM.PN ---
<Lucas Torres - Last Filed: 01/19/17 12:42> Subjective - Date & Time of Evaluation Date of Evaluation: 01/19/17 Time of Evaluation: 09:39 - Subjective Subjective: Patient was seen and examined at bedside. Per nursing there were no acute events overnight. The patient reports feeling well and has returned to her baseline. The patient denies any chest pain, shortness of breath, nausea, vomiting, lightheaded, dizziness, abdominal pain, or any other complaints. Objective - Vital Signs/Intake and Output Vital Signs (last 24 hours): Temp Pulse Resp BP Pulse Ox 98.4 F 70 20 145/80 97 01/19/17 07:56 01/19/17 07:56 01/19/17 07:56 01/19/17 07:56 01/19/17 07:56 Intake and Output: 01/19/17 01/19/17 06:59 18:59 Intake Total 1920 Balance 1920 - Medications Medications: Current Medications Famotidine (Pepcid) 20 mg PO DAILY [facility] Last Admin: 01/19/17 09:53 Dose: 20 mg Nicotine (Nicoderm Cq) 1 patch TD DAILY [facility] Last Admin: 01/19/17 09:53 Dose: 1 patch Risperidone (Risperdal Tab) 1 mg PO TID [facility] PRN Reason: Protocol Last Admin: 01/19/17 09:53 Dose: 1 mg Sodium Chloride (Sodium Chloride Tab) 2 gm PO Q8H [facility] Last Admin: 01/19/17 05:32 Dose: 2 gm Zolpidem Tartrate (Ambien) 5 mg PO HS PRN; Protocol PRN Reason: Insomnia Last Admin: 01/18/17 21:14 Dose: 5 mg - Labs Labs: 01/19/17 06:40 01/19/17 06:40 - Head Exam Head Exam: ATRAUMATIC, NORMAL INSPECTION, NORMOCEPHALIC - Eye Exam Eye Exam: EOMI, Normal appearance, PERRL Pupil Exam: NORMAL ACCOMODATION, PERRL - ENT Exam ENT Exam: Mucous Membranes Moist - Neck Exam Neck Exam: Normal Inspection - Respiratory Exam Respiratory Exam: NORMAL BREATHING PATTERN. absent: Respiratory Distress - Cardiovascular Exam Cardiovascular Exam: REGULAR RHYTHM, RRR, +S1, +S2. absent: Rubs - GI/Abdominal Exam GI & Abdominal Exam: Rigid, Soft, Normal Bowel Sounds. absent: Tenderness, Organomegaly - Extremities Exam Extremities Exam: Full ROM, Normal Inspection, Tenderness - Back Exam Back Exam: NORMAL INSPECTION. 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 Patient reports drinking over 2 Liters of Water before coming to E.D. -Patient given Hypertonic Salin @50ml/hr in E.D.. Fluids D/C'ed - Patient initially 116 upon admission. Now patient is 130. -Will continue to monitor Na level with serial cmp's. Should not exceed 8mmol in 24 hours. -Dr. Forbes rec's appreciated. Will monitor cmp closeley. Altered mental status -After being medically stabilized patient should be transferred to involuntary psychiatric unit. -Patient has a history of non-compliance with meds per Sister. -Psych consult appreciated. Per Psych Haldol and Depakote are discontinued until further notice at the risk of altering Na level. Leukocytosis -Resolved. Patient is afebrile and WBC count is 7.8. Will monitor with serial CBC's. -U/A showed some blood present and small leukocyte esterase. -Patient currently asymptomatic -Urine Cx pending. -MRSA screen pending -Patient remains afebrile. Will monitor with serial CBC'S. GI ppx -Continue Protonix DVT ppx -SCD's <Joe LANGSTON,Chante - Last Filed: 01/22/17 16:17> Objective - Vital Signs/Intake and Output Vital Signs (last 24 hours): Temp Pulse Resp BP Pulse Ox 97.7 F 68 19 117/66 98 01/21/17 06:00 01/21/17 06:00 01/21/17 06:00 01/21/17 06:00 01/21/17 06:00 - Labs Labs: 01/21/17 06:00 01/21/17 06:00 Attending/Attestation - Attestation I have personally seen and examined this patient.: Yes I have fully participated in the care of the patient.: Yes I have reviewed all pertinent clinical information, including history, physical exam and plan: Yes Notes (Text): 01/22/17 16:14 Patient was seen and examined with medical information specialist. Agreed with resident assessment and plan. Patient is a 56 year old Female with significant PMH for bipolar disorder and schizophrenia, brought to the ED by EMS after she was reportedly involved in an argument with her brother at home, and was acting disorderly and screaming.Found to have severe hyponatremia. 116. 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 Management plan was discussed in detail with patient Education was provided.
--- NOTE | 2017-01-19 17:42 | PN ---
SUBJECTIVE: The patient was followed up, shows the patient is 56-year-old female, who was recently discharged from the psychiatric inpatient unit. The patient was admitted on the medical side to ICU unit for evaluation of low sodium level. Psych consult was called for evaluation of altered mental status. The patient was followed up for past 2 days. The patient was down graded to the 3rd flood today. The patient was seen and examined. The patient presented to be alert, oriented and pleasant. The patient said that she feels okay. The patient denied being depressed. Denied thoughts of killing herself or others. The patient reports that she is feeling "perfectly fine". As per nursing report, the patient does not feel any aggressive or agitated behavior. The patient's complained with medications and treatment. PHYSICAL EXAMINATION: VITAL SIGNS: Stable. Temperature 98.4, pulse of 70, blood pressure 145/80, respiration 20, oxygen saturation 97%. MEDICATIONS: Reviewed. The patient is on Pepcid, NicoDerm, Risperdal was resumed 1 mg 3 times a day. The patient is on Ambien 5 mg at the nighttime. Depakote discontinued because of SIADH and also low sodium level. Despite the fact, the patient was taken that medication for years. This senior technical writer agree with that plan. LABORATORY DATA: Reviewed. Chemistry: Sodium still 130. Toxicology reviewed. Valproic acid is 113, it was 57. MENTAL STATUS EXAMINATION: The patient is pleasant and cooperative, not in acute distress. Good eye contact. The speech was normal rate on quality and quantity, but somewhat underproductive. Mood described "I feel perfectly fine." Affect was reactive. Mood in congruent. Thought process was coherent and goal directed. Thought content: The patient denied visual, auditory or tactile hallucinations. Denied paranoid ideation. The patient denied thoughts of harming herself or others. Denied intents or plan. Insight and judgement are improving. Impulses are well controlled. IMPRESSION: As per history, the patient has bipolar disorder. At this time, the patient was admitted from the medical site for delirium stage due to electrolytes imbalance. PLAN: The patient is improving. The patient does not meet the criteria, therefore further follow up and transfer to the psychiatric inpatient unit. This senior technical writer will sign off. The patient was advised not to take Depakote. The patient has enough medications Risperdal at home. The patient has follow up appointment with Dr. Asael Jurado, local psychiatrist. The patient is in good behavioral control. There is no behavioral issues. This senior technical writer will sign off. Should you have any questions give me a call back or re-consult as needed. Kristin Lundy MD
[2017-01-19 20:15] LABS: BLOOD UREA NITROGEN 14 mg/dL (7-21); CALCIUM 8.5 mg/dL (8.4-10.5); CARBON DIOXIDE 26 mmol/L (21-33); GFR AFRICAN-AMERICAN > 60; GLUCOSE,RANDOM 112 mg/dL (70-110); SODIUM 121 mmol/L (132-148)
[2017-01-19 20:30] LABS: CHLORIDE 87 mmol/L (95-110); POTASSIUM 3.7 mmol/L (3.6-5.0)
[2017-01-20 07:38] LABS: BASO # 0.04 K/mm3 (0.0-2.0); BASO % 0.5 % (0.0-3.0); EOS # 0.1 (0.0-0.7); EOS % 1.4 % (1.5-5.0); GRAN # 4.96 (1.4-6.5); GRAN % 61.7 % (50.0-68.0); LYMPH # 2.1 (1.2-3.4); LYMPH % 25.6 % (22.0-35.0); MEAN CELL VOLUME 90.7 fl (80.0-105.0); MEAN CORPUSCULAR HEMOGLOBIN 32.1 pg (25.0-35.0); MEAN CORPUSCULAR HGB CONC 35.5 g/dl (31.0-37.0); MEAN PLATELET VOLUME 10.3 fl (7.0-11.0); MONO # 0.9 (0.1-0.6); MONO % 10.8 % (1.0-6.0); RED CELL DISTRIBUTION WIDTH 12.3 % (11.5-14.5)
[2017-01-20 08:00] LABS: ALKALINE PHOSPHATASE 105 U/L (38-126); ALT/SGPT 30 U/L (7-56); AST/SGOT 36 U/L (14-36); BILIRUBIN,TOTAL 0.3 mg/dL (0.2-1.3); BLOOD UREA NITROGEN 11 mg/dL (7-21); CARBON DIOXIDE 29 mmol/L (21-33); CHLORIDE 89 mmol/L (98-107); GFR AFRICAN-AMERICAN > 60; GLUCOSE,RANDOM 89 mg/dL (70-110); MAGNESIUM 1.4 mg/dL (1.7-2.2); PHOSPHOROUS 3.4 mg/dL (2.5-4.5); POTASSIUM 4.3 mmol/L (3.6-5.0); SODIUM 124 mmol/L (132-148); TOTAL PROTEIN 6.9 g/dL (5.8-8.3)
[2017-01-20] MEDS ORDERED: Magnesium Sulfate 2 GM in Sodium Chloride 0.9% 100 ML IVPB ONE (09:12)
[2017-01-20 13:50] LABS: BLOOD UREA NITROGEN 9 mg/dL (7-21); CALCIUM 8.7 mg/dL (8.4-10.5); CARBON DIOXIDE 24 mmol/L (21-33); CHLORIDE 95 mmol/L (98-107); GFR AFRICAN-AMERICAN > 60; GLUCOSE,RANDOM 145 mg/dL (70-110); POTASSIUM 3.8 mmol/L (3.6-5.0); SODIUM 128 mmol/L (132-148)
--- NOTE | 2017-01-20 14:59 | PN ---
NEPHROLOGY FOLLOWUP NOTE SUBJECTIVE: A 56-year-old female with past medical history of hypertension, bipolar disorder, admitted with severe hyponatremia. Nephrology following for the same. The patient reports feeling well, ready to go home. PHYSICAL EXAMINATION: VITAL SIGNS: This morning, blood pressure 99/75, heart rate 68, respirations 20, temperature 97.9, O2 sat 100% on room air. GENERAL: No distress. Conversing coherently in full sentences. HEENT: Moist mucous membranes. Nonicteric. RESPIRATORY: Lungs clear to auscultation bilaterally. No rales, no rhonchi, no wheezes. HEART: S1 and S2 normal. No murmurs, no gallops, no rubs. GI: Abdomen is soft, nontender, nondistended. EXTREMITIES: No leg edema. SKIN: Warm. No cyanosis. PSYCHIATRIC: Normal mood. LABORATORY DATA: This morning, CBC; WBC 8.0, hemoglobin 11.7, hematocrit 33.0, platelets 238. Chemistry panel: Sodium 128, potassium 3.8, chloride 95, bicarb is 24, BUN 9, creatinine 0.6, glucose 145, calcium 8.7. Urine osmolality from this morning 580, sodium 89. ASSESSMENT AND PLAN: 1. 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 Should have followup BMP done within a week or so. 2. Hypertension. Blood pressures have been mildly elevated, although low normal today. The patient was on amlodipine 5 mg daily at home, not receiving it while here; can restart antihypertensive meds as an outpatient once the patient is receiving regular followup. Chad Forbes MD
[2017-01-20 17:44] VITALS: RESP 19
--- NOTE | 2017-01-20 22:56 | CP.PCM.PN ---
<Jamie Mackey - Last Filed: 01/20/17 22:52> Subjective - Date & Time of Evaluation Date of Evaluation: 01/20/17 Time of Evaluation: 07:00 - Subjective Subjective: Patient was seen and examined at bedside. No overnight events reported. Patient denies any chest pain, shortness of breath, nausea, vomiting, lightheadedness, dizziness, abdominal pain, or any other complaints. Objective - Vital Signs/Intake and Output Vital Signs (last 24 hours): Temp Pulse Resp BP Pulse Ox 98.7 F 67 19 107/59 L 97 01/20/17 17:43 01/20/17 17:43 01/20/17 17:43 01/20/17 17:43 01/20/17 17:43 Intake and Output: 01/20/17 01/21/17 18:59 06:59 Intake Total 1080 304 Balance 1080 304 - Medications Medications: Current Medications Acetaminophen (Tylenol 325mg Tab) 650 mg PO Q6H PRN PRN Reason: Pain or Fever Last Admin: 01/20/17 22:10 Dose: 650 mg Famotidine (Pepcid) 20 mg PO DAILY [facility] Last Admin: 01/20/17 09:41 Dose: 20 mg Nicotine (Nicoderm Cq) 1 patch TD DAILY [facility] Last Admin: 01/20/17 09:42 Dose: 1 patch Risperidone (Risperdal Tab) 1 mg PO TID [facility] PRN Reason: Protocol Last Admin: 01/20/17 17:23 Dose: 1 mg Zolpidem Tartrate (Ambien) 5 mg PO HS PRN; Protocol PRN Reason: Insomnia Last Admin: 01/20/17 22:12 Dose: 5 mg - Labs Labs: 01/20/17 07:33 01/20/17 13:20 - Constitutional Appears: Well, Non-toxic, No Acute Distress - Head Exam Head Exam: ATRAUMATIC, NORMOCEPHALIC - Respiratory Exam Respiratory Exam: Clear to Ausculation Bilateral. absent: Rales, Rhonchi, Wheezes - Cardiovascular Exam Cardiovascular Exam: RRR, +S1, +S2 - GI/Abdominal Exam GI & Abdominal Exam: Soft, Normal Bowel Sounds. absent: Tenderness - Extremities Exam Extremities Exam: absent: Pedal Edema - Neurological Exam Neurological Exam: Alert, Awake, Oriented x3 - Psychiatric Exam Psychiatric exam: absent: Homicidal Ideation, Suicidal Ideation Additional comments: Questionable poor insight and judgment. - Skin Skin Exam: Dry, Intact, Normal Color, Warm Assessment and Plan - Assessment and Plan (Free Text) Assessment: 78 y.o with PMH of Bipolar DO and schizophrenia presents with AMS and hyponatremia. 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 Patient reports drinking over 2 Liters of Water before coming to E.D. -Patient given Hypertonic Salin @50ml/hr in E.D.. Fluids D/C'ed - Patient initially 116 upon admission. Latest count is 128 -Will continue to monitor Na level with serial cmp's. Should not exceed 8mmol in 24 hours. -Dr. Forbes rec's appreciated. Will monitor cmp closeley. Altered mental status (stable) -Psych has signed off on patient. Per sister, patient is manipulative. Sister states that patient does not have outpatient visit with psychiatrist scheduled. The name patient gave is psychiatrist that sister works for. Sister also states that patient called her on phone and told her that she would not take the risperidone as recommended by Psych. -Alternative Psych consult per sisters request. Sister also wants to a referral to [facility] counseling. -Psych consult appreciated. Per Psych Haldol and Depakote are discontinued until further notice at the risk of altering Na level. Leukocytosis (resolved) -MRSA and Urine cultures negative. -U/A showed some blood present and small leukocyte esterase. -Patient currently asymptomatic -Patient remains afebrile. Will monitor with serial CBC'S. GI ppx -Continue Protonix DVT ppx -SCD's Dispo: Will likely D/C tomorrow. We will discuss with Psych first. Patient seen, examined, and reviewed with Attending Jamie Mackey PGY-1 <Philipp Hendrickson - Last Filed: 01/21/17 07:03> Objective - Vital Signs/Intake and Output Vital Signs (last 24 hours): Temp Pulse Resp BP Pulse Ox 98.7 F 67 19 107/59 L 97 01/20/17 17:43 01/20/17 17:43 01/20/17 17:43 01/20/17 17:43 01/20/17 17:43 Intake and Output: 01/21/17 01/21/17 06:59 18:59 Intake Total 304 Balance 304 - Medications Medications: Current Medications Acetaminophen (Tylenol 325mg Tab) 650 mg PO Q6H PRN PRN Reason: Pain or Fever Last Admin: 01/21/17 04:14 Dose: 650 mg Famotidine (Pepcid) 20 mg PO DAILY [facility] Last Admin: 01/20/17 09:41 Dose: 20 mg Nicotine (Nicoderm Cq) 1 patch TD DAILY [facility] Last Admin: 01/20/17 09:42 Dose: 1 patch Risperidone (Risperdal Tab) 1 mg PO TID [facility] PRN Reason: Protocol Last Admin: 01/20/17 17:23 Dose: 1 mg Zolpidem Tartrate (Ambien) 5 mg PO HS PRN; Protocol PRN Reason: Insomnia Last Admin: 01/20/17 22:12 Dose: 5 mg - Labs Labs: 01/20/17 07:33 01/20/17 13:20 Attending/Attestation - Attestation I have personally seen and examined this patient.: Yes I have fully participated in the care of the patient.: Yes I have reviewed all pertinent clinical information, including history, physical exam and plan: Yes Notes (Text): 01/20/17 78 year old female with past medical history of bipolar and schizophrenia who presented with altered mental status and hyponatremia, 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 She is being followed by psychiatry as well as nephrology. Her sodium level has improved today to 128. Possible d/c planning in 24 hrs if levels are stable. Will discuss with nephrology as well as psychiatry regarding d/c planning. I did speak with the patient's sister earlier this morning regarding d/c planning. Philipp Hendrickson MD Hospitalist.
[2017-01-21 07:04] LABS: BASO # 0.04 K/mm3 (0.0-2.0); BASO % 0.5 % (0.0-3.0); EOS # 0.1 (0.0-0.7); EOS % 1.3 % (1.5-5.0); GRAN # 4.8 (1.4-6.5); GRAN % 62.1 % (50.0-68.0); HEMATOCRIT 33.8 % (36.0-48.0); LYMPH # 1.9 (1.2-3.4); LYMPH % 24.5 % (22.0-35.0); MEAN CELL VOLUME 93.6 fl (80.0-105.0); MEAN CORPUSCULAR HEMOGLOBIN 31.9 pg (25.0-35.0); MEAN PLATELET VOLUME 10.4 fl (7.0-11.0); MONO # 0.9 (0.1-0.6); MONO % 11.6 % (1.0-6.0); WHITE BLOOD COUNT 7.7 10^3/ul (4.5-11.0)
[2017-01-21 07:36] LABS: ALKALINE PHOSPHATASE 107 U/L (38-126); ALT/SGPT 41 U/L (7-56); AST/SGOT 37 U/L (14-36); BILIRUBIN,TOTAL 0.3 mg/dL (0.2-1.3); BLOOD UREA NITROGEN 11 mg/dL (7-21); CALCIUM 9.2 mg/dL (8.4-10.5); CARBON DIOXIDE 29 mmol/L (21-33); CHLORIDE 97 mmol/L (98-107); GFR AFRICAN-AMERICAN > 60; GLUCOSE,RANDOM 82 mg/dL (70-110); MAGNESIUM 1.8 mg/dL (1.7-2.2); POTASSIUM 4.4 mmol/L (3.6-5.0); SODIUM 134 mmol/L (132-148); TOTAL PROTEIN 7.1 g/dL (5.8-8.3)
[2017-01-21 09:34] VITALS: BP 117/66; PULSE 68; TEMP 97.7; O2SAT 98
--- NOTE | 2017-01-21 12:01 | CON ---
The patient is a 56-year-old white female with a history of bipolar disorder who was being treated on the medical floor for delirium. The patient was seen by Dr. Lundy on the medical floor who has noted improvement in the patient's mental status and signed off on the patient psychiatrically and this occurred on 01/19/2017. On 01/20/2017, another psychiatric consultation was requested for the patient as a "second opinion." This was requested by the patient's sister, Steph. Please note that the patient has requested that Steph be not informed of the patient's status anymore on the medical floor. Communication is to be stopped with the patient's sister in this respect. This is per psychiatric note on 01/19/2017. Apparently, Steph, the patient's sister indicated that she wanted another psychiatric consultation because the patient was lying about having an outpatient visit with Dr. Asael Jurado scheduled. Setph also indicated that the patient told her on the phone that she would not take Risperdal once discharged. This is why a second psychiatric consultation was requested. Please note that if medical providers reviewed Barbra Prietoe's social work note on 01/16 and 01/17/2017, it outlined that the patient did have an outpatient followup aftercare appointment scheduled with Dr. Asael Jurado on 02/13/2017 at 3:00 p.m. Please note that the medical team could have also spoken with the patient and determined that as well. The patient also reported during my interview today that she never spoke with her sister and that "this is the first I'm hearing about it" regarding her plan to be noncompliant with Risperdal. At bedside, the patient is alert and oriented to date, month, year, circumstances, location. She is well aware of the reason for her hospitalization. She is pleasant, cooperative. Thought process is coherent and goal directed. She recalls me from my visit with her on the psychiatric floor last weekend. Her memory is intact in this regard. She is not hallucinating and she denies hallucination. The patient's delusions were not elicited. The patient is not hypervigilant or paranoid. Her insight and judgment are considered to be fair. This provider agrees with Dr. Lundy clearly, dated 01/19/2017, in total completion. The patient is psychiatrically cleared for discharge. IMPRESSION: Bipolar disorder by history, resolving delirium secondary to electrolyte imbalance. RECOMMENDATIONS: The patient is still improving. The patient has not shown much change in mental status since Dr. Lundy's evaluation of her 2 days ago. Please continue with original recommendations by Dr. Lundy per her dictated consult on 01/19/2017. The patient is aware that she is not to take Depakote. Please note that the patient still has her appointment plan with Dr. Asael Jurado on 02/13/2017; however, you may go ahead and schedule an appointment for her at [facility] as well. Psychiatry will sign off on the patient once again. Elodia Goldberg MD
--- NOTE | 2017-01-21 18:40 | CP.PCM.DIS ---
<Jamie Mackey - Last Filed: 01/21/17 18:37> Provider - Provider Date of Admission: 01/17/17 10:15 Attending physician: Philipp Hendrickson MD Primary care physician: Debbie Nagel MD Consults: Nephro: Mughni Psych: Kristin/Dandy(2) Time Spent in preparation of Discharge (in minutes): 50 Diagnosis - Discharge Diagnosis (1) Hyponatremia Status: Resolved Priority: High (2) Delirium due to another medical condition Status: Resolved Hospital Course - Lab Results Lab Results: Micro Results 01/17/17 12:00 Naris MRSA Culture (Admit) - Final MRSA NOT DETECTED 01/17/17 10:49 Urine,Clean Catch Urine Culture - Final No Growth (<1,000 CFU/ML) Most Recent Lab Values WBC 7.7 10^3/ul (4.5-11.0) 01/21/17 06:00 RBC 3.61 10^6/uL (3.5-6.1) 01/21/17 06:00 Hgb 11.5 g/dL (12.0-16.0) L 01/21/17 06:00 Hct 33.8 % (36.0-48.0) L 01/21/17 06:00 MCV 93.6 fl (80.0-105.0) 01/21/17 06:00 MCH 31.9 pg (25.0-35.0) 01/21/17 06:00 MCHC 34.0 g/dl (31.0-37.0) 01/21/17 06:00 RDW 13.0 % (11.5-14.5) 01/21/17 06:00 Plt Count 267 10^3/uL (120.0-450.0) 01/21/17 06:00 MPV 10.4 fl (7.0-11.0) 01/21/17 06:00 Gran % 62.1 % (50.0-68.0) 01/21/17 06:00 Lymph % (Auto) 24.5 % (22.0-35.0) 01/21/17 06:00 [place] % (Auto) 11.6 % (1.0-6.0) H 01/21/17 06:00 Eos % (Auto) 1.3 % (1.5-5.0) L 01/21/17 06:00 Baso % (Auto) 0.5 % (0.0-3.0) 01/21/17 06:00 Gran # 4.80 (1.4-6.5) 01/21/17 06:00 Lymph # 1.9 (1.2-3.4) 01/21/17 06:00 [place] # 0.9 (0.1-0.6) H 01/21/17 06:00 Eos # 0.1 (0.0-0.7) 01/21/17 06:00 Baso # 0.04 K/mm3 (0.0-2.0) 01/21/17 06:00 Sodium 134 mmol/L (132-148) 01/21/17 06:00 Potassium 4.4 mmol/L (3.6-5.0) 01/21/17 06:00 Chloride 97 mmol/L (98-107) L 01/21/17 06:00 Carbon Dioxide 29 mmol/L (21-33) 01/21/17 06:00 Anion Gap 12 (10-20) 01/21/17 06:00 BUN 11 mg/dL (7-21) 01/21/17 06:00 Creatinine 0.7 mg/dL (0.5-1.4) 01/21/17 06:00 Est GFR ( Amer) > 60 01/21/17 06:00 Est GFR (Non-Af Amer) > 60 01/21/17 06:00 Random Glucose 82 mg/dL (70-110) 01/21/17 06:00 Serum Osmolality 241 mosm/kg (271-296) L 01/17/17 10:04 Calcium 9.2 mg/dL (8.4-10.5) 01/21/17 06:00 Phosphorus 4.0 mg/dL (2.5-4.5) 01/21/17 06:00 Magnesium 1.8 mg/dL (1.7-2.2) 01/21/17 06:00 Total Bilirubin 0.3 mg/dL (0.2-1.3) 01/21/17 06:00 AST 37 U/L (14-36) H 01/21/17 06:00 ALT 41 U/L (7-56) 01/21/17 06:00 Alkaline Phosphatase 107 U/L (38-126) 01/21/17 06:00 Total Protein 7.1 g/dL (5.8-8.3) 01/21/17 06:00 Albumin 3.5 g/dL (3.0-4.8) 01/21/17 06:00 Globulin 3.6 gm/dL 01/21/17 06:00 Albumin/Globulin Ratio 1.0 (1.1-1.8) L 01/21/17 06:00 Urine Color Light yellow (YELLOW) 01/17/17 10:04 Urine Appearance Clear (CLEAR) 01/17/17 10:04 Urine pH 8.5 (4.7-8.0) 01/17/17 10:04 Ur Specific [place] 1.010 (1.005-1.035) 01/17/17 10:04 Urine Protein Trace mg/dL (<30 mg/dL) H 01/17/17 10:04 Urine Glucose (UA) Negative mg/dL (NEGATIVE) 01/17/17 10:04 Urine Ketones Negative mg/dL (NEGATIVE) 01/17/17 10:04 Urine Blood Large (NEGATIVE) H 01/17/17 10:04 Urine Nitrate Negative (NEGATIVE) 01/17/17 10:04 Urine Bilirubin Negative (NEGATIVE) 01/17/17 10:04 Urine Urobilinogen 1.0 E.U./dL (<1 E.U./dL) H 01/17/17 10:04 Ur Leukocyte Esterase Trace Radha/uL (NEGATIVE) H 01/17/17 10:04 Urine RBC 5 - 10 /hpf (0-2) 01/17/17 10:04 Urine WBC Negative /hpf (0-6) 01/17/17 10:04 Ur Epithelial Cells 1 - 3 /hpf (0-5) 01/17/17 10:04 Urine Osmolality 580 mosm/kg (50-645) 01/20/17 01:10 Ur Random Creatinine 14 mg/dL 01/17/17 10:04 Ur Random Sodium 89 meq/L 01/20/17 03:00 Ur Random Uric Acid 11.1 mg/dL 01/17/17 10:04 Urine Chloride 15 mmol/L (32-290) L 01/17/17 10:49 Salicylates < 1 mg/dL (2.0-20.0) L 01/17/17 09:14 Urine Opiates Screen Negative (NEGATIVE) 01/17/17 10:04 Urine Methadone Screen Negative (NEGATIVE) 01/17/17 10:04 Acetaminophen < 10.0 ug/ml (10.0-20.0) L 01/17/17 09:14 Ur Barbiturates Screen Negative (NEGATIVE) 01/17/17 10:04 Valproic Acid 57 ug/mL (50.0-100.0) 01/17/17 10:16 Ur Phencyclidine Scrn Negative (NEGATIVE) 01/17/17 10:04 Ur Amphetamines Screen Negative (NEGATIVE) 01/17/17 10:04 U Benzodiazepines Scrn Negative (NEGATIVE) 01/17/17 10:04 U Oth Cocaine Metabols Negative (NEGATIVE) 01/17/17 10:04 U Cannabinoids Screen Negative (NEGATIVE) 01/17/17 10:04 Alcohol, Quantitative < 10 mg/dL (0-10) 01/17/17 09:14 - Hospital Course Hospital Course: This patient is a 56 year old female with a past medical history of Bipolar DO and schizophrenia who presented with AMS and 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 Nephro and Psych were consulted on the case. UA on admission showed trace leukocyte esterase with trace protein, large blood, and 1.0 Urobilinogen. Urine culture was negative. MRSA in nares was negative. EKG on admission read sinus rhythm with premature supraventricular complexes and biatrial enlargement. CT of head showed no intracranial hemorrhage, mass effect , or parenchymal edema. There were no suspicious extra-axial fluid collection. Patients hyponatremia was corrected on Day 2 of admission. CXR showed no active disease. Patients mental status was back at baseline at day 2 of admission. Joelo signed off. Original Psych consult signed off, then patient s sister wanted a 2nd opinion. 2nd psych consult signed off as well. They recommended that patient discontinue depakote, be compliant with her respiridone and to follow up at her scheduled outpatient psychiatric appointment. Patient did not meet requirement for involuntary inpatient psych admission. Patient is to follow up with PMD and Psychiatrist. She has risperidone at home. Patient is agreeable to plan. Patient seen, reviewed, and discussed with Attending Jamie Mackey PGY1 - Date & Time of H&P Date of H&P: 01/21/17 Time of H&P: 07:00 Discharge Exam - Head Exam Head Exam: ATRAUMATIC, NORMOCEPHALIC - Eye Exam Eye Exam: EOMI, Normal appearance - ENT Exam ENT Exam: Mucous Membranes Moist - Respiratory Exam Respiratory Exam: Clear to PA & Lateral. absent: Rales, Rhonchi - Cardiovascular Exam Cardiovascular Exam: RRR, +S1, +S2 - GI/Abdominal Exam GI & Abdominal Exam: Normal Bowel Sounds, Soft. absent: Organomegaly, Tenderness - Extremities Exam Extremities exam: normal capillary refill Additional comments: no pedal edema - Back Exam Back exam: absent: CVA tenderness (L), CVA tenderness (R) - Neurological Exam Neurological exam: Alert, Oriented x3 - Psychiatric Exam Psychiatric exam: Normal Affect, Normal Mood - Skin Skin Exam: Dry, Intact, Normal Color, Warm Discharge Plan - Follow Up Plan Condition: SERIOUS Disposition: HOME/ ROUTINE Instructions: Hyponatremia (DC), Chronic Hypertension (DC) Additional Instructions: Follow up with your primary medical doctor within 1 week Make sure you go to your scheduled psychiatry appointment. Referrals: Debbie Nagel MD [Primary Care Provider] - <Philipp Hendrickson - Last Filed: 01/22/17 16:19> Provider - Provider Date of Admission: 01/17/17 10:15 Attending physician: Philipp Hendrickson MD Primary care physician: Debbie Nagel MD Hospital Course - Lab Results Lab Results: Micro Results 01/17/17 12:00 Naris MRSA Culture (Admit) - Final MRSA NOT DETECTED 01/17/17 10:49 Urine,Clean Catch Urine Culture - Final No Growth (<1,000 CFU/ML) Most Recent Lab Values WBC 7.7 10^3/ul (4.5-11.0) 01/21/17 06:00 RBC 3.61 10^6/uL (3.5-6.1) 01/21/17 06:00 Hgb 11.5 g/dL (12.0-16.0) L 01/21/17 06:00 Hct 33.8 % (36.0-48.0) L 01/21/17 06:00 MCV 93.6 fl (80.0-105.0) 01/21/17 06:00 MCH 31.9 pg (25.0-35.0) 01/21/17 06:00 MCHC 34.0 g/dl (31.0-37.0) 01/21/17 06:00 RDW 13.0 % (11.5-14.5) 01/21/17 06:00 Plt Count 267 10^3/uL (120.0-450.0) 01/21/17 06:00 MPV 10.4 fl (7.0-11.0) 01/21/17 06:00 Gran % 62.1 % (50.0-68.0) 01/21/17 06:00 Lymph % (Auto) 24.5 % (22.0-35.0) 01/21/17 06:00 [place] % (Auto) 11.6 % (1.0-6.0) H 01/21/17 06:00 Eos % (Auto) 1.3 % (1.5-5.0) L 01/21/17 06:00 Baso % (Auto) 0.5 % (0.0-3.0) 01/21/17 06:00 Gran # 4.80 (1.4-6.5) 01/21/17 06:00 Lymph # 1.9 (1.2-3.4) 01/21/17 06:00 [place] # 0.9 (0.1-0.6) H 01/21/17 06:00 Eos # 0.1 (0.0-0.7) 01/21/17 06:00 Baso # 0.04 K/mm3 (0.0-2.0) 01/21/17 06:00 Sodium 134 mmol/L (132-148) 01/21/17 06:00 Potassium 4.4 mmol/L (3.6-5.0) 01/21/17 06:00 Chloride 97 mmol/L (98-107) L 01/21/17 06:00 Carbon Dioxide 29 mmol/L (21-33) 01/21/17 06:00 Anion Gap 12 (10-20) 01/21/17 06:00 BUN 11 mg/dL (7-21) 01/21/17 06:00 Creatinine 0.7 mg/dL (0.5-1.4) 01/21/17 06:00 Est GFR ( Amer) > 60 01/21/17 06:00 Est GFR (Non-Af Amer) > 60 01/21/17 06:00 Random Glucose 82 mg/dL (70-110) 01/21/17 06:00 Serum Osmolality 241 mosm/kg (271-296) L 01/17/17 10:04 Calcium 9.2 mg/dL (8.4-10.5) 01/21/17 06:00 Phosphorus 4.0 mg/dL (2.5-4.5) 01/21/17 06:00 Magnesium 1.8 mg/dL (1.7-2.2) 01/21/17 06:00 Total Bilirubin 0.3 mg/dL (0.2-1.3) 01/21/17 06:00 AST 37 U/L (14-36) H 01/21/17 06:00 ALT 41 U/L (7-56) 01/21/17 06:00 Alkaline Phosphatase 107 U/L (38-126) 01/21/17 06:00 Total Protein 7.1 g/dL (5.8-8.3) 01/21/17 06:00 Albumin 3.5 g/dL (3.0-4.8) 01/21/17 06:00 Globulin 3.6 gm/dL 01/21/17 06:00 Albumin/Globulin Ratio 1.0 (1.1-1.8) L 01/21/17 06:00 Urine Color Light yellow (YELLOW) 01/17/17 10:04 Urine Appearance Clear (CLEAR) 01/17/17 10:04 Urine pH 8.5 (4.7-8.0) 01/17/17 10:04 Ur Specific [place] 1.010 (1.005-1.035) 01/17/17 10:04 Urine Protein Trace mg/dL (<30 mg/dL) H 01/17/17 10:04 Urine Glucose (UA) Negative mg/dL (NEGATIVE) 01/17/17 10:04 Urine Ketones Negative mg/dL (NEGATIVE) 01/17/17 10:04 Urine Blood Large (NEGATIVE) H 01/17/17 10:04 Urine Nitrate Negative (NEGATIVE) 01/17/17 10:04 Urine Bilirubin Negative (NEGATIVE) 01/17/17 10:04 Urine Urobilinogen 1.0 E.U./dL (<1 E.U./dL) H 01/17/17 10:04 Ur Leukocyte Esterase Trace Radha/uL (NEGATIVE) H 01/17/17 10:04 Urine RBC 5 - 10 /hpf (0-2) 01/17/17 10:04 Urine WBC Negative /hpf (0-6) 01/17/17 10:04 Ur Epithelial Cells 1 - 3 /hpf (0-5) 01/17/17 10:04 Urine Osmolality 580 mosm/kg (50-645) 01/20/17 01:10 Ur Random Creatinine 14 mg/dL 01/17/17 10:04 Ur Random Sodium 89 meq/L 01/20/17 03:00 Ur Random Uric Acid 11.1 mg/dL 01/17/17 10:04 Urine Chloride 15 mmol/L (32-290) L 01/17/17 10:49 Salicylates < 1 mg/dL (2.0-20.0) L 01/17/17 09:14 Urine Opiates Screen Negative (NEGATIVE) 01/17/17 10:04 Urine Methadone Screen Negative (NEGATIVE) 01/17/17 10:04 Acetaminophen < 10.0 ug/ml (10.0-20.0) L 01/17/17 09:14 Ur Barbiturates Screen Negative (NEGATIVE) 01/17/17 10:04 Valproic Acid 57 ug/mL (50.0-100.0) 01/17/17 10:16 Ur Phencyclidine Scrn Negative (NEGATIVE) 01/17/17 10:04 Ur Amphetamines Screen Negative (NEGATIVE) 01/17/17 10:04 U Benzodiazepines Scrn Negative (NEGATIVE) 01/17/17 10:04 U Oth Cocaine Metabols Negative (NEGATIVE) 01/17/17 10:04 U Cannabinoids Screen Negative (NEGATIVE) 01/17/17 10:04 Alcohol, Quantitative < 10 mg/dL (0-10) 01/17/17 09:14 Attending/Attestation - Attestation I have personally seen and examined this patient.: Yes I have fully participated in the care of the patient.: Yes I have reviewed all pertinent clinical information, including history, physical exam and plan: Yes Notes (Text): 01/22/17 16:17 78 year old female with past medical history of bipolar and schizophrenia who presented with altered mental status and hyponatremia, 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 She was seen by psychiatry as well as nephrology. Her mental status improved to baseline and her sodium level also improved. She is being discharged home to follow up with her pmd. Follow up with nephrology and psychiatrist. Counselled on medication compliance. Counselled on fluid restriction as per nephrology recommendations. Recommendations were also discussed with family members (sister/brother). Philipp Hendrickson MD Hospitalist.
== END 2017-01-21 13:45 | disposition home or self-care (01) | DRG 641 ==
LOC: ED 07:48 → ERH 10:15 → CCU 10:28 → 3RNO 01-18 15:45
PROVIDERS: ADMIT Internal Medicine; ATTEND Internal Medicine
DX: E87.1 Hypo-osmolality and hyponatremia (principal); E86.9 Volume depletion, unspecified; F05 Delirium due to known physiological condition; N39.0 Urinary tract infection, site not specified; F31.9 Bipolar disorder, unspecified; I10 Essential (primary) hypertension; F20.9 Schizophrenia, unspecified; R63.1 Polydipsia; E83.42 Hypomagnesemia; R51 Headache; F17.210 Nicotine dependence, cigarettes, uncomplicated; Z81.8 Family history of other mental and behavioral disorders